=== PATIENT | female | born 1950 | race Caucasian/White ===

== ENCOUNTER 2019-05-04 11:00 | Outpatient (RCR) | payer SELFPAY | END 2019-06-03 00:01 | LOC: CR 11:00 | PROVIDERS: Referring Provider Internal Medicine Cardiovascular Disease; Visit Provider Internal Medicine Cardiovascular Disease | DX: I25.10 Atherosclerotic heart disease of native coronary artery without angina pectoris (principal) ==

== ENCOUNTER 2019-06-11 09:13 | Outpatient (RCR) | payer SELFPAY | END 2019-07-04 23:59 | disposition home or self-care (01) | LOC: CR 09:13 | PROVIDERS: Referring Provider Internal Medicine Cardiovascular Disease; Visit Provider Internal Medicine Cardiovascular Disease | DX: I25.10 Atherosclerotic heart disease of native coronary artery without angina pectoris (principal) ==

== ENCOUNTER 2019-07-07 11:27 | Outpatient (RCR) | payer SELFPAY | END 2019-08-02 23:59 | disposition home or self-care (01) | LOC: CR 11:27 | PROVIDERS: Referring Provider Internal Medicine Cardiovascular Disease; Visit Provider Internal Medicine Cardiovascular Disease | DX: I25.10 Atherosclerotic heart disease of native coronary artery without angina pectoris (principal) ==

== ENCOUNTER → 2019-11-10 09:25 | Outpatient (BNVA) | payer MEDICARE, OTHER, SELFPAY | PROVIDERS: PCP Physician Assistant; Visit Provider Specialist | DX: G20 Parkinson's disease (principal) | CPT/HCPCS: 99204 ==

== ENCOUNTER 2019-11-11 13:19 | Outpatient (RCR) | payer SELFPAY | END 2019-12-02 23:59 | disposition home or self-care (01) | LOC: CR 13:19 | PROVIDERS: PCP Physician Assistant; Referring Provider Internal Medicine Cardiovascular Disease; Visit Provider Internal Medicine Cardiovascular Disease | DX: I25.10 Atherosclerotic heart disease of native coronary artery without angina pectoris (principal) ==

== ENCOUNTER 2019-11-18 06:00 | Outpatient (RCR) | payer MEDICARE, OTHER, SELFPAY | END 2019-12-02 23:59 | disposition home or self-care (01) | LOC: SPT 06:00 | PROVIDERS: PCP Physician Assistant; Visit Provider Specialist | DX: G20 Parkinson's disease (principal) | CPT/HCPCS: 97110; 97112; 97162 ==

== ENCOUNTER 2019-12-03 06:00 | Outpatient (RCR) | payer MEDICARE, OTHER, SELFPAY | END 2019-12-19 23:00 | disposition home or self-care (01) | LOC: SPT 06:00 | PROVIDERS: PCP Physician Assistant; Visit Provider Specialist | DX: G20 Parkinson's disease (principal) | CPT/HCPCS: 97110; 97112 ==

== ENCOUNTER 2020-01-06 11:09 | Outpatient (RCR) | payer SELFPAY | END 2020-02-02 23:59 | disposition home or self-care (01) | LOC: CR 11:09 | PROVIDERS: PCP Physician Assistant; Referring Provider Internal Medicine Cardiovascular Disease; Visit Provider Internal Medicine Cardiovascular Disease | DX: I25.10 Atherosclerotic heart disease of native coronary artery without angina pectoris (principal) ==

== ENCOUNTER → 2020-01-28 08:05 | Outpatient (BNVA) | payer MEDICARE, OTHER, SELFPAY | PROVIDERS: PCP Physician Assistant; Visit Provider Specialist | DX: G20 Parkinson's disease (principal) | CPT/HCPCS: 99213 ==

== ENCOUNTER 2020-02-03 14:21 | Outpatient (RCR) | payer SELFPAY | END 2020-03-03 23:59 | disposition home or self-care (01) | LOC: CR 14:21 | PROVIDERS: PCP Physician Assistant; Referring Provider Internal Medicine Cardiovascular Disease; Visit Provider Internal Medicine Cardiovascular Disease | DX: I25.10 Atherosclerotic heart disease of native coronary artery without angina pectoris (principal) ==

== ENCOUNTER 2020-03-05 10:47 | Outpatient (RCR) | payer SELFPAY | END 2020-04-03 23:59 | disposition home or self-care (01) | LOC: CR 10:47 | PROVIDERS: PCP Physician Assistant; Referring Provider Internal Medicine Cardiovascular Disease; Visit Provider Internal Medicine Cardiovascular Disease | DX: Z95.1 Presence of aortocoronary bypass graft (principal) ==

== ENCOUNTER 2020-04-04 11:23 | Outpatient (RCR) | payer SELFPAY | END 2020-05-03 23:59 | disposition home or self-care (01) | LOC: CR 11:23 | PROVIDERS: PCP Physician Assistant; Referring Provider Internal Medicine Cardiovascular Disease; Visit Provider Internal Medicine Cardiovascular Disease | DX: Z95.1 Presence of aortocoronary bypass graft (principal) ==

== ENCOUNTER 2020-05-06 11:06 | Outpatient (RCR) | payer SELFPAY | END 2020-06-03 23:59 | disposition home or self-care (01) | LOC: CR 11:06 | PROVIDERS: PCP Physician Assistant; Referring Provider Internal Medicine Cardiovascular Disease; Visit Provider Internal Medicine Cardiovascular Disease | DX: Z95.1 Presence of aortocoronary bypass graft (principal) ==

== ENCOUNTER 2020-06-04 13:03 | Outpatient (RCR) | payer SELFPAY | END 2020-07-04 23:59 | disposition home or self-care (01) | LOC: CR 13:03 | PROVIDERS: PCP Physician Assistant; Referring Provider Internal Medicine Cardiovascular Disease; Visit Provider Internal Medicine Cardiovascular Disease | DX: Z95.1 Presence of aortocoronary bypass graft (principal) ==

== ENCOUNTER → 2020-06-29 09:50 | Outpatient (BNVA) | payer MEDICARE, OTHER, SELFPAY | PROVIDERS: PCP Physician Assistant; Visit Provider Specialist | DX: G20 Parkinson's disease (principal) | CPT/HCPCS: 99214 ==

== ENCOUNTER 2020-07-06 10:39 | Outpatient (RCR) | payer SELFPAY | END 2020-08-01 23:59 | disposition home or self-care (01) | LOC: CR 10:39 | PROVIDERS: PCP Physician Assistant; Referring Provider Internal Medicine Cardiovascular Disease; Visit Provider Internal Medicine Cardiovascular Disease | DX: Z95.1 Presence of aortocoronary bypass graft (principal) ==

== ENCOUNTER 2020-08-02 09:34 | Outpatient (RCR) | payer SELFPAY | END 2020-09-01 23:59 | disposition home or self-care (01) | LOC: CR 09:34 | PROVIDERS: PCP Physician Assistant; Referring Provider Internal Medicine Cardiovascular Disease; Visit Provider Internal Medicine Cardiovascular Disease | DX: Z95.1 Presence of aortocoronary bypass graft (principal) ==

== ENCOUNTER 2020-09-02 14:27 | Outpatient (RCR) | payer SELFPAY | END 2020-10-01 23:59 | disposition home or self-care (01) | LOC: CR 14:27 | PROVIDERS: PCP Physician Assistant; Referring Provider Internal Medicine Cardiovascular Disease; Visit Provider Internal Medicine Cardiovascular Disease | DX: Z95.1 Presence of aortocoronary bypass graft (principal) ==

== ENCOUNTER 2020-10-04 10:39 | Outpatient (RCR) | payer SELFPAY | END 2020-11-01 23:59 | disposition home or self-care (01) | LOC: CR 10:39 | PROVIDERS: PCP Physician Assistant; Referring Provider Internal Medicine Cardiovascular Disease; Visit Provider Internal Medicine Cardiovascular Disease | DX: Z95.1 Presence of aortocoronary bypass graft (principal) ==

== ENCOUNTER 2020-11-02 14:19 | Outpatient (RCR) | payer SELFPAY | END 2020-12-01 23:59 | disposition home or self-care (01) | LOC: CR 14:19 | PROVIDERS: PCP Physician Assistant; Referring Provider Internal Medicine Cardiovascular Disease; Visit Provider Internal Medicine Cardiovascular Disease | DX: Z95.1 Presence of aortocoronary bypass graft (principal) ==

== ENCOUNTER 2020-12-02 13:59 | Outpatient (RCR) | payer SELFPAY | END 2021-01-01 23:59 | disposition home or self-care (01) | LOC: CR 13:59 | PROVIDERS: PCP Physician Assistant; Referring Provider Internal Medicine Cardiovascular Disease; Visit Provider Internal Medicine Cardiovascular Disease | DX: Z95.1 Presence of aortocoronary bypass graft (principal) ==

== ENCOUNTER → 2020-12-29 08:55 | Outpatient (BNVA) | payer MEDICARE, OTHER, SELFPAY | PROVIDERS: PCP Physician Assistant; Visit Provider Specialist | DX: G20 Parkinson's disease (principal); R41.3 Other amnesia | CPT/HCPCS: 96116; 99213 ==

== ENCOUNTER 2021-01-03 14:33 | Outpatient (RCR) | payer SELFPAY | END 2021-02-01 23:59 | disposition home or self-care (01) | LOC: CR 14:33 | PROVIDERS: PCP Physician Assistant; Referring Provider Internal Medicine Cardiovascular Disease; Visit Provider Internal Medicine Cardiovascular Disease | DX: Z95.1 Presence of aortocoronary bypass graft (principal) ==

== ENCOUNTER 2021-02-03 10:50 | Outpatient (RCR) | payer SELFPAY | END 2021-03-03 23:59 | disposition home or self-care (01) | LOC: CR 10:50 | PROVIDERS: PCP Physician Assistant; Referring Provider Internal Medicine Cardiovascular Disease; Visit Provider Internal Medicine Cardiovascular Disease | DX: Z95.1 Presence of aortocoronary bypass graft (principal) ==

== ENCOUNTER 2021-02-09 14:45 | Inpatient (IN) | payer MEDICARE, OTHER, SELFPAY ==
[2021-02-09] VITALS (12 sets, daily range): BP systolic 104–140; BP diastolic 68–98; PULSE 52–133; RESP 16–25; TEMP 36.5–36.8; O2SAT 93–98; BMI 34.2
--- NOTE | 2021-02-09 15:03 | XR_ITS ---
WS: [id number] Portable AP upright chest, 02/09/2021 Clinical Data: chest pain Comparison: PA chest, 08/18/2017. Findings: No nodules, masses or effusions are seen. The heart is normal. The pulmonary vascularity is not increased. No pneumonia or pneumothorax is seen. A single lead pacemaker is in position with the generator overlying the left lower chest. There are midline sternotomy sutures. The aortic arch and descending thoracic aorta show calcification and tortuosity. The patient has had an anterior cervical disc fusion. XR/XR chest 1V portable [id number] Impression: Atherosclerosis.
--- NOTE | 2021-02-09 15:04 | ECG_ITS ---
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 Measurements Intervals [place] Rate: 106 P: [place]: QRS: 62 QRSD: 86 T: 108 QT: 414 QTc: 551 Interpretive Statements ATRIAL FLUTTER WITH RAPID VENTRICULAR RESPONSE POSSIBLE ANTERIOR MYOCARDIAL INFARCTION , PROBABLY OLD Compared to ECG 04/20/2017 16:26:31 ST (T wave) deviation now present Sinus rhythm no longer present Myocardial infarct finding still present Electronically Signed On 02-09-2021 17:01:19 CDT by Aileen Mcconnell M.D. [id number] f
--- NOTE | 2021-02-09 17:04 | ECG_ITS ---
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 Measurements Intervals [place] Rate: 127 P: 85 NE: 174 QRS: 9 QRSD: 105 T: 142 QT: 337 QTc: 492 Interpretive Statements Atrial flutter with RVR POSSIBLE ANTERIOR MYOCARDIAL INFARCTION , PROBABLY OLD PROBABLE INFERIOR MYOCARDIAL INFARCTION , OF INDETERMINATE AGE Compared to ECG 02/09/2021 15:26:08 Myocardial infarct finding still present Electronically Signed On 02-10-2021 9:28:34 CDT by Aileen Mcconnell M.D. [id number] f
[2021-02-09] MEDS: sodium chloride 0.9% 1,000 ML 999 ML IV (18:12)
[2021-02-09 18:16] LABS: Basophils # 0.1 10^3/uL (0.0-0.1); Basophils % 0.7 %; Eosinophils # 0.3 10^3/uL (0.0-0.8); Hematocrit 41.3 % (37.0-47.0); Hemoglobin 13.2 g/dL (11.5-15.3); Lymphocytes # 3.1 10^3/uL (0.8-4.8); Lymphocytes % 25.6 %; Mean Corpuscular Hemoglobin 28.5 pg (28.0-34.0); Mean Corpuscular Volume 89.2 fl (81-99); Mean Platelet Volume 9.7 fL (7.4-10.4); Monocytes # 0.8 10^3/uL (0.2-0.9); Monocytes % 6.6 %; Neutrophils # 7.93 10^3/uL (1.8-7.7); Neutrophils % 64.6 %; Nucleated Red Blood Cells % 0 %; Platelet Count 263 10^3/cmm (130-400); Red Blood Count 4.63 10^6/uL (4.1-5.3); White Blood Count 12.3 10^3/uL (4.0-10.0)
[2021-02-09 18:37] LABS: D Dimer 1.61 ug/mIFEU (0-0.59)
[2021-02-09 18:46] LABS: SARS Covid-2 Antigen Negative (Negative)
--- NOTE | 2021-02-09 18:48 | CTR_ITS ---
PROCEDURE INFORMATION: Exam: CTA Chest With Contrast Exam date and time: 02/09/2021 6:48 PM Age: 70 years old Clinical indication: Shortness of breath; Prior surgery; Surgery type: Open heart/pacemaker; Patient HX: Chest pain/sob TECHNIQUE: Imaging protocol: Computed tomographic angiography of the chest with contrast. 3D rendering (Not supervised by radiologist): MIP and/or 3D reconstructed images were created by the technologist. Radiation optimization: All CT scans at this facility use at least one of these dose optimization techniques: automated exposure control; mA and/or kV adjustment per patient size (includes targeted exams where dose is matched to clinical indication); or iterative reconstruction. Contrast material: [id number]; Contrast volume: 65 ml; Contrast route: INTRAVENOUS (IV); COMPARISON: CR XR chest 1V portable [id number] 02/09/2021 3:40 PM RADIATION DOSE METRICS: Total DLP (mGy-cm): 529.23 FINDINGS: Tubes, catheters and devices: Left-sided pacemaker with leads in the heart. Pulmonary arteries: Normal. No pulmonary emboli. Aorta: Unremarkable. No aortic aneurysm. No aortic dissection. Lungs: 4 mm left upper lobe nodule, image 111. Minimal dependent atelectasis in the lower lobes and lingula. Pleural spaces: Unremarkable. No pneumothorax. No pleural effusion. Heart: Coronary artery calcifications. The heart size is normal. Mitral annulus calcifications. Lymph nodes: Unremarkable. No enlarged lymph nodes. Liver: Multiple subcentimeter hypodensities in the liver appear to be of fat density but are too small to accurately characterize. Bones/joints: C-spine fusion hardware. No fracture identified. Median sternotomy changes. Soft tissues: Unremarkable. CT/CT angio chest PE protcl [id number] IMPRESSION: 1. No evidence for pulmonary embolus or other acute finding. 2. 4 mm left pulmonary nodule. For patients at low risk (minimal or absent history of smoking and of other known risk factors), no routine follow-up is indicated. For patients at high risk (history of smoking or of other known risk factors), consider optional CT Chest at 12 months. (Reference: Annabella) 3. Multiple tiny fat density lesions in the liver most likely represent lipomas or angiomyolipomas. References: Annabella Dotson, et al. Guidelines for Management of Incidental Pulmonary Nodules Detected on CT Images: From the Fleischner Society 2017. Radiology. 2017;284(1):228-243. Radiation Dose CTDIVOL = (mGy): DLP = 529.23 (mGy-cm)
[2021-02-09 18:49] LABS: Troponin(5th) Baseline 76 ng/L (0-10)
[2021-02-09 18:55] LABS: Alanine Aminotransferase 8 U/L (0-33); Albumin Level 4.5 g/dL (3.5-5.2); Alkaline Phosphatase 143 IU/L (35-105); Anion Gap 20.6 (5-19); Aspartate Amino Transferase 35 U/L (0-32); Blood Urea Nitrogen 34 mg/dL (8-23); Calcium 9.4 mg/dL (8.5-10.5); Carbon Dioxide 23 mmol/L (22-29); Chloride 99 mmol/L (98-107); Glucose 61 mg/dL (65-115); Osmolality Calculated 294 mOsm/kg (285-295); Potassium 3.6 mmol/L (3.5-5.1); Sodium 139 mmol/L (136-145); Total Bilirubin 0.3 mg/dL (0.15-1.2); Total Protein 7.5 g/dL (6.6-8.7)
--- NOTE | 2021-02-09 19:33 | ED_ITS ---
HPI - Arrhythmia/Palpitations General: Chief Complaint: Arrhythmia/Palpitations Stated Complaint: Chest pain Time Seen by Provider: 02/09/21 17:49 Source: patient Mode of arrival: ambulatory Limitations: no limitations History of Present Illness: HPI narrative: 70-year-old female who has a history of intermittent palpitations along with heart history and Parkinson's. She states that she goes to the heart clinic but states that over the last 2 days she been having increasing palpitations. States her heart rates been well in the 130s. She has no history of A. fib. She states she had some slight chest pain. Some slight shortness of breath denies any cough. Denies any worsening proving factors. Associated symptoms: Deny nausea or vomiting Review of Systems Const: Denies: fever(s), chills, body aches or change in appetite Eyes: Denies: blurry vision or eye discomfort ENMT: Denies: throat pain or dental pain Card: Reports: chest pain and palpitations Resp: Denies: dyspnea GI: Denies: abdominal pain, nausea, vomiting or diarrhea : Denies: dysuria Musc: Denies: neck pain or back pain Skin/Breast: Denies: rash Neuro: Denies: headache(s) Psych: Denies: depression Ahsan/Lymph: Denies: easy bruising All/Imm: Denies: urticaria PFSH ED PFSH: Family History Other CAD (coronary artery disease) Diabetes Hypertension Stroke Denies family history of Cancer Social History Alcohol intake: never History of recent travel: Yes ([facility] ) Physical Exam Const: COMMON NORMALS: no acute distress, patient oriented x3 and healthy appearing HENMT: COMMON NORMALS: normocephalic and atraumatic HEAD & SCALP: normocephalic and atraumatic Eye: COMMON NORMALS: Equal, round and reactive pupils present and EOMs intact bilaterally PUPIL: Yes Equal, round and reactive pupils present Neck/C-Spine: COMMON NORMALS: full ROM and supple Chest: COMMONS NORMALS: normal inspection of the chest and normal palpation of entire chest wall Resp: COMMON NORMALS: normal respiratory effort, No retractions, No use of accessory muscles and clear to auscultation bilaterally AUSCULTATION: clear to auscultation bilaterally Cardio: COMMON NORMALS: regular rhythm and No murmurs present (Cardio) RATE: tachycardic RHYTHM: regular rhythm GI: COMMON NORMALS: Normal to inspection, nondistended, normoactive bowel sounds present, Soft to palpation, non-tender and no masses PALPATION: Yes Soft to palpation Extremity: COMMON NORMALS: normal to inspection and full ROM Neuro: COMMON NORMALS: patient oriented x3, moves all extremities and no focal motor deficits Psych: COMMON NORMALS: mental status grossly normal, Normal thought process present and cooperative THOUGHT PROCESS: Normal thought process present Skin: COMMON NORMALS: no rashes or lesions noted and no wounds GENERAL SKIN EXAM: no rashes or lesions noted Course Vital Signs: Vital signs: Vital Signs Temperature 98.2 F 02/09/21 15:22 Pulse Rate 111 H 02/09/21 21:47 Respiratory Rate 20 H 02/09/21 21:47 Blood Pressure 110/74 02/09/21 21:47 Pulse Oximetry 95 02/09/21 21:47 MDM - Arrhythmia/Palpitations MDM Narrative: Medical decision making narrative: Patient presents with atrial flutter. I gave her multiple doses of Cardizem and put on Cardizem drip and she has not converted. Patient CT is normal and troponins are normal. I spoke to the hospitalist and will admit on a Cardizem drip. Lab Data: Labs: Lab Results 02/09/21 02/09/21 02/09/21 Range/Units 18:00 18:00 18:00 WBC 12.3 H (4.0-10.0) 10^3/ uL RBC 4.63 (4.1-5.3) 10^6/u L Hgb 13.2 (11.5-15.3) g/dL Hct 41.3 (37.0-47.0) % MCV 89.2 (81-99) fl MCH 28.5 (28.0-34.0) pg MCHC 32.0 (30.0-36.0) g/dL RDW 16.0 H (12.1-15.1) % Plt Count 263 (130-400) 10^3/c mm MPV 9.7 (7.4-10.4) fL Neut % (Auto) 64.6 % Lymph % (Auto) 25.6 % Sevier % (Auto) 6.6 % Eos % (Auto) 2.0 % Baso % (Auto) 0.7 % Neut # (Auto) 7.93 H (1.8-7.7) 10^3/u L Lymph # (Auto) 3.1 (0.8-4.8) 10^3/u L Sevier # (Auto) 0.8 (0.2-0.9) 10^3/u L Eos # (Auto) 0.3 (0.0-0.8) 10^3/u L Baso # (Auto) 0.1 (0.0-0.1) 10^3/u L Nucleated RBC % (a uto) 0 % Nucleated RBCs # 0.0 /100WBC D-Dimer (0-0.59) ug/mIFE U Sodium 139 (136-145) mmol/L Potassium 3.6 (3.5-5.1) mmol/L Chloride 99 (98-107) mmol/L Carbon Dioxide 23 (22-29) mmol/L Anion Gap 20.6 H (5-19) BUN 34 H (8-23) mg/dL Creatinine 1.2 H (0.5-0.9) mg/dL GFR Calculation Not Reportable Glucose 61 L (65-115) mg/dL Calculated Osmolal ity 294 (285-295) mOsm/k g Calcium 9.4 (8.5-10.5) mg/dL Total Bilirubin 0.3 (0.15-1.2) mg/dL AST 35 H (0-32) U/L ALT 8 (0-33) U/L Alkaline Phosphata se 143 H (35-105) IU/L Troponin T Baselin e 76 H (0-10) ng/L Troponin T 120 Min [place] (0-10) ng/L Delta Troponin T (0-10) ABS# NT-Pro-B Natriuret Pep 9414 H (0-125) pg/mL Total Protein 7.5 (6.6-8.7) g/dL Albumin 4.5 (3.5-5.2) g/dL Globulin 3.0 (1.3-4.6) g/dL SARS-CoV-2 Ag (Rap id) (Negative) 09/01/2202/09/21 02/09/21 Range/Units 18:00 18:00 18:18 WBC (4.0-10.0) 10^3/ uL RBC (4.1-5.3) 10^6/u L Hgb (11.5-15.3) g/dL Hct (37.0-47.0) % MCV (81-99) fl MCH (28.0-34.0) pg MCHC (30.0-36.0) g/dL RDW (12.1-15.1) % Plt Count (130-400) 10^3/c mm MPV (7.4-10.4) fL Neut % (Auto) % Lymph % (Auto) % [place]vier % (Auto) % Eos % (Auto) % Baso % (Auto) % Neut # (Auto) (1.8-7.7) 10^3/u L Lymph # (Auto) (0.8-4.8) 10^3/u L [place]vier # (Auto) (0.2-0.9) 10^3/u L Eos # (Auto) (0.0-0.8) 10^3/u L Baso # (Auto) (0.0-0.1) 10^3/u L Nucleated RBC % (a uto) % Nucleated RBCs # /100WBC D-Dimer 1.61 H (0-0.59) ug/mIFE U Sodium (136-145) mmol/L Potassium (3.5-5.1) mmol/L Chloride (98-107) mmol/L Carbon Dioxide (22-29) mmol/L Anion Gap (5-19) BUN (8-23) mg/dL Creatinine (0.5-0.9) mg/dL GFR Calculation Glucose (65-115) mg/dL Calculated Osmolal ity (285-295) mOsm/k g Calcium (8.5-10.5) mg/dL Total Bilirubin (0.15-1.2) mg/dL AST (0-32) U/L ALT (0-33) U/L Alkaline Phosphata se (35-105) IU/L Troponin T Baselin e (0-10) ng/L Troponin T 120 Min [place] (0-10) ng/L Delta Troponin T (0-10) ABS# NT-Pro-B Natriuret Pep Cancelled (0-125) pg/mL Total Protein (6.6-8.7) g/dL Albumin (3.5-5.2) g/dL Globulin (1.3-4.6) g/dL SARS-CoV-2 Ag (Rap id) Negative (Negative) 02/09/21 Range/Units 20:27 WBC (4.0-10.0) 10^3/ uL RBC (4.1-5.3) 10^6/u L Hgb (11.5-15.3) g/dL Hct (37.0-47.0) % MCV (81-99) fl MCH (28.0-34.0) pg MCHC (30.0-36.0) g/dL RDW (12.1-15.1) % Plt Count (130-400) 10^3/c mm MPV (7.4-10.4) fL Neut % (Auto) % Lymph % (Auto) % [place] % (Auto) % Eos % (Auto) % Baso % (Auto) % Neut # (Auto) (1.8-7.7) 10^3/u L Lymph # (Auto) (0.8-4.8) 10^3/u L [place] # (Auto) (0.2-0.9) 10^3/u L Eos # (Auto) (0.0-0.8) 10^3/u L Baso # (Auto) (0.0-0.1) 10^3/u L Nucleated RBC % (a uto) % Nucleated RBCs # /100WBC D-Dimer (0-0.59) ug/mIFE U Sodium (136-145) mmol/L Potassium (3.5-5.1) mmol/L Chloride (98-107) mmol/L Carbon Dioxide (22-29) mmol/L Anion Gap (5-19) BUN (8-23) mg/dL Creatinine (0.5-0.9) mg/dL GFR Calculation Glucose (65-115) mg/dL Calculated Osmolal ity (285-295) mOsm/k g Calcium (8.5-10.5) mg/dL Total Bilirubin (0.15-1.2) mg/dL AST (0-32) U/L ALT (0-33) U/L Alkaline Phosphata se (35-105) IU/L Troponin T Baselin e (0-10) ng/L Troponin T 120 Min [place] 61.34 H (0-10) ng/L Delta Troponin T -14.66 L (0-10) ABS# NT-Pro-B Natriuret Pep (0-125) pg/mL Total Protein (6.6-8.7) g/dL Albumin (3.5-5.2) g/dL Globulin (1.3-4.6) g/dL SARS-CoV-2 Ag (Rap id) (Negative) Imaging Data^: CT Chest: Attestation: I personally reviewed and interpreted this imaging study as follows: Radiologist's impression: [employer] [address] [address] Scan Report Signed Patient: Margaret Cano Unit #: [id number] : 1950 Age/Sex: 70 / F ADM Date: 02/09/21 Loc: ER Room/Bed: Attending Dr: Ordering Provider/Ordering MD: Franco Stovall MD Date of Service: 02/09/21 Procedure(s): CT angio chest PE prot [id number] Accession Number(s): [id number] Report Number: [id number] PROCEDURE INFORMATION: Exam: CTA Chest With Contrast Exam date and time: 02/09/2021 6:48 PM Age: 70 years old Clinical indication: Shortness of breath; Prior surgery; Surgery type: Open heart/pacemaker; Patient HX: Chest pain/sob TECHNIQUE: Imaging protocol: Computed tomographic angiography of the chest with contrast. 3D rendering (Not supervised by radiologist): MIP and/or 3D reconstructed images were created by the technologist. Radiation optimization: All CT scans at this facility use at least one of these dose optimization techniques: automated exposure control; mA and/or kV adjustment per patient size (includes targeted exams where dose is matched to clinical indication); or iterative reconstruction. Contrast material: [id number]; Contrast volume: 65 ml; Contrast route: INTRAVENOUS (IV); COMPARISON: CR XR chest 1V portable [id number] 02/09/2021 3:40 PM RADIATION DOSE METRICS: Total DLP (mGy-cm): 529.23 FINDINGS: Tubes, catheters and devices: Left-sided pacemaker with leads in the heart. Pulmonary arteries: Normal. No pulmonary emboli. Aorta: Unremarkable. No aortic aneurysm. No aortic dissection. Lungs: 4 mm left upper lobe nodule, image 111. Minimal dependent atelectasis in the lower lobes and lingula. Pleural spaces: Unremarkable. No pneumothorax. No pleural effusion. Heart: Coronary artery calcifications. The heart size is normal. Mitral annulus calcifications. Lymph nodes: Unremarkable. No enlarged lymph nodes. Liver: Multiple subcentimeter hypodensities in the liver appear to be of fat density but are too small to accurately characterize. Bones/joints: C-spine fusion hardware. No fracture identified. Median sternotomy changes. Soft tissues: Unremarkable. CT/CT angio chest PE protcl [id number] IMPRESSION: 1. No evidence for pulmonary embolus or other acute finding. 2. 4 mm left pulmonary nodule. For patients at low risk (minimal or absent history of smoking and of other known risk factors), no routine follow-up is indicated. For patients at high risk (history of smoking or of other known risk factors), consider optional CT Chest at 12 months. (Reference: Annabella) 3. Multiple tiny fat density lesions in the liver most likely represent lipomas or angiomyolipomas. References: Annabella Dotson, et al. Guidelines for Management of Incidental Pulmonary Nodules Detected on CT Images: From the Fleischner Society 2017. Radiology. 2017;284(1):228-243. Radiation Dose CTDIVOL = (mGy): DLP = 529.23 (mGy-cm) Dictated By: Tad Ovalle Signed By: Tad Ovalle Signed Date/Time: 02/09/212004 DD/ 03 EKG Data^: EKG 1: Attestation: I personally reviewed and interpreted this EKG as follows: EKG interpretation date: 02/09/21 EKG interpretation time: 17:56 Interpretation: sinus tach hr [address] or t wave abnormalities qrs 105 qtc 412 Other EKG comments: Chest X-Ray 02/09/21 15:03 Impression: Atherosclerosis. Chest CTA 02/09/21 18:48 IMPRESSION: 1. No evidence for pulmonary embolus or other acute finding. 2. 4 mm left pulmonary nodule. For patients at low risk (minimal or absent history of smoking and of other known risk factors), no routine follow-up is indicated. For patients at high risk (history of smoking or of other known risk factors), consider optional CT Chest at 12 months. (Reference: Annabella) 3. Multiple tiny fat density lesions in the liver most likely represent lipomas or angiomyolipomas. References: Annabella Dotson, et al. Guidelines for Management of Incidental Pulmonary Nodules Detected on CT Images: From the Fleischner Society 2017. Radiology. 2017;284(1):228-243. Radiation Dose CTDIVOL = (mGy): DLP = 529.23 (mGy-cm) EKG 2: Attestation: I personally reviewed and interpreted this EKG as follows: EKG interpretation date: 02/09/21 EKG interpretation time: 19:43 Interpretation: atrial flutter hr [address] or t wave abnormalities qrs 113 qtc 409 Other EKG comments: Chest X-Ray 02/09/21 15:03 Impression: Atherosclerosis. Chest CTA 02/09/21 18:48 IMPRESSION: 1. No evidence for pulmonary embolus or other acute finding. 2. 4 mm left pulmonary nodule. For patients at low risk (minimal or absent history of smoking and of other known risk factors), no routine follow-up is indicated. For patients at high risk (history of smoking or of other known risk factors), consider optional CT Chest at 12 months. (Reference: Annabella) 3. Multiple tiny fat density lesions in the liver most likely represent lipomas or angiomyolipomas. References: Albertoholebron Dotson et al. Guidelines for Management of Incidental Pulmonary Nodules Detected on CT Images: From the Fleischner Society 2017. Radiology. 2017;284(1):228-243. Radiation Dose CTDIVOL = (mGy): DLP = 529.23 (mGy-cm) EKG 3: Attestation: I personally reviewed and interpreted this EKG as follows: EKG interpretation date: 02/09/21 EKG interpretation time: 20:54 Interpretation: aftrial flutter hr [address] or t wave abnormalities qrs 102 qtc 408 Other EKG comments: Chest X-Ray 02/09/21 15:03 Impression: Atherosclerosis. Chest CTA 02/09/21 18:48 IMPRESSION: 1. No evidence for pulmonary embolus or other acute finding. 2. 4 mm left pulmonary nodule. For patients at low risk (minimal or absent history of smoking and of other known risk factors), no routine follow-up is indicated. For patients at high risk (history of smoking or of other known risk factors), consider optional CT Chest at 12 months. (Reference: Annabella) 3. Multiple tiny fat density lesions in the liver most likely represent lipomas or angiomyolipomas. References: Annabella Dotson, et al. Guidelines for Management of Incidental Pulmonary Nodules Detected on CT Images: From the Fleischner Society 2017. Radiology. 2017;284(1):228-243. Radiation Dose CTDIVOL = (mGy): DLP = 529.23 (mGy-cm) Discharge Plan Discharge Patient Disposition: Admitted As Inpatient Admit Provider: Geneva Warren Clinical Impression: Atrial flutter Qualifiers: Atrial flutter type: unspecified Qualified Code(s): I48.92 - Unspecified atrial flutter Condition: Stable Coding Level of Care Code ED Refrigerator Glazier for Chg Fwd Exam Comprehensive
[2021-02-09] MEDS: sodium chloride 0.9% 500 ML 999 ML IV (19:55)
[2021-02-09] MEDS: iodixanol 320 mg/mL 100mL Btl IV (20:42)
[2021-02-09 20:47] LABS: NT Pro B Type Natriuretic Pept 9414 pg/mL (0-125)
--- NOTE | 2021-02-09 21:04 | ECG_ITS ---
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 Measurements Intervals [place] Rate: 130 P: [place]: QRS: 41 QRSD: 113 T: 100 QT: 332 QTc: 490 Interpretive Statements ATRIAL FLUTTER WITH RAPID VENTRICULAR RESPONSE MODERATE INTRAVENTRICULAR CONDUCTION DELAY [110+ ms QRS DURATION] ST DEVIATION AND MODERATE T-WAVE ABNORMALITY, CONSIDER INFERIOR ISCHEMIA [-0.1+ mV T-WAVE IN II/aVF] Compared to ECG 02/09/2021 17:56:29 Intraventricular conduction delay now present T-wave abnormality now present Possible ischemia now present Sinus tachycardia no longer present Myocardial infarct finding no longer present Electronically Signed On 02-10-2021 20:10:43 CDT by Humberto Marcial M.D. [id number]
[2021-02-09 21:27] LABS: Troponin 5 2HR 61.34 ng/L (0-10)
--- NOTE | 2021-02-09 23:08 | PC.NURSE ---
Dr. Warren notified of heart rate ranging 90s to 130s with Cardizem at 15.
[2021-02-09] MEDS: metoprolol tartrate 1 mg/1 mL SDV 5 mL 5 MG IVP (23:30)
[2021-02-10] VITALS (22 sets, daily range): BP systolic 81–135; BP diastolic 45–85; PULSE 58–146; RESP 14–26; TEMP 36.6–36.7; O2SAT 89–99
[2021-02-10 00:06] LABS: Troponin 5 6HR 61.29 ng/L (0-10)
--- NOTE | 2021-02-10 04:06 | PM.HP ---
Providers/Chief Complaint Admitting Physician: Geneva Warren MD Primary Care Provider: Chanel Moseley Chief Complaint: Chest pain History of Present Illness Margaret Cano is a 70 year old female with Parkinson's disease, CAD, DM, HTN, intermittent A fib, presenting with2 days of palpitations. HR sustained in 140s upon presentation, did not resolve with pushes of cardizem, started on cardizem gtt. Since transfer to [facility] also received metoprolol 5mg iv once after which HR now at 52. 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 States since changing the Lasix she has been having the symptoms and finding mild out of breath on exertion. Denies any nausea vomiting, headache, chest pain, orthopnea, loss of consciousness, fall, fever, known exposure to COVID-19. Troponin baseline 76, negative 2 and 6 hr deltas. D dimer elevated however CTA negative for PE or other acute finding. Denies chest pain. Review of Systems General: Reports: 10 or more systems reviewed and unremarkable except in HPI and below Const: Denies: fever(s), chills or body aches Eyes: Denies: change in vision, blurry vision or photophobia ENMT: Reports: hoarseness; Denies: throat pain, enlarged tonsils, odynophagia or nasal congestion Card: Denies: chest pain, palpitations, irregular heart rhythm, edema, swelling of feet/ankles, lightheadedness, pre-syncope, dyspnea on exertion or orthopnea Resp: Denies: dyspnea, productive cough, non-productive cough, wheezing, stridor, pain on inspiration, change in phlegm color, hemoptysis or chest congestion GI: Denies: abdominal pain, nausea, vomiting, hematemesis, coffee ground emesis, dysphagia, heartburn, diarrhea, constipation, GI cramping, change in stool character, hematochezia or melena : Denies: flank pain, difficulty voiding, dysuria, urinary frequency, urinary urgency, urinary hesitancy or hematuria Musc: Denies: neck pain, back pain, extremity pain, joint swelling, joint warmth or deformity Neuro: Denies: headache(s), numbness in extremities, weakness in extremities, sensory changes, difficulty walking, frequent falls, dizziness, vertigo, behavioral changes, Slurred speech present or seizure-like activity Psych: Denies: anxiety, depression, suicidal ideation or homicidal ideation Endo: Denies: polyuria, polydipsia, tired all the time, cold intolerance or hot flashes Ahsan/Lymph: Denies: easy bruising or easy bleeding Medications/Allergies Home Medications Medication Instructions Recorded Confirmed Last Taken Type clopidogrel 75 mg tablet 75 mg PO DAILY 11/10/19 02/09/21 02/08/21 History insulin detemir U-100 100 unit/mL 20 unit SUBCUT .COMPLEX ml 11/10/19 02/09/21 02/09/21 History (3 mL) subcutaneous pen liraglutide 0.6 mg/0.1 mL (18 mg/3 1.8 mg SUBCUT DAILY 11/10/19 02/09/21 02/09/21 History mL) subcutaneous pen injector mirabegron 25 mg tablet,extended 25 mg PO DAILY 11/10/19 02/09/21 02/09/21 History release 24 hr nitroglycerin 0.4 mg sublingual 0.4 mg SUBLINGUAL Q5M PRN 11/10/19 02/09/21 Unknown History tablet cholecalciferol (vitamin D3) 25 25 mcg PO DAILY 06/29/20 02/09/21 02/08/21 History mcg (1,000 unit) capsule furosemide 40 mg tablet See Rx Instructions .ROUTE 06/29/20 02/09/21 02/09/21 History .COMPLEX tab metoprolol succinate 25 mg 50 mg PO DAILY tab 06/29/20 02/09/21 02/09/21 History tablet,extended release 24 hr carbidopa 25 mg-levodopa 100 mg 1 tab PO QID #120 tab 12/29/20 02/09/21 02/08/21 Rx tablet gabapentin 100 mg capsule 100 mg PO BID 12/29/20 02/09/21 02/08/21 History galantamine 16 mg 24 hr 16 mg PO QAM #30 cap 12/29/20 02/09/21 Unknown Rx capsule,extended release galantamine 24 mg 24 hr 24 mg PO QAM #30 cap 12/29/20 02/09/21 Unknown Rx capsule,extended release aspirin [Aspir-81] 81 mg PO DAILY 02/09/21 02/09/21 02/08/21 History galantamine 8 mg PO DAILY 02/09/21 02/09/2102/08/21 History Allergies Allergy/AdvReac Type Severity Reaction Status Date / Time codeine Allergy unknown Verified 01/11/21 10:14 Penicillins Allergy unknown Verified 01/11/21 10:14 sulfamethoxazole Allergy unknown Verified 01/11/21 10:14 [From Bactrim] trimethoprim [From Bactrim] Allergy unknown Verified 01/11/21 10:14 PFSH Acute PFSH: Medical History (Updated 02/10/21 @ 15:53 by Rishabh Josue MD) CAD (coronary artery disease) Diabetes Hypercholesteremia Surgical History (Updated 02/10/21 @ 04:11 by Geneva Warren MD) H/O neck surgery History of heart artery stent S/P triple vessel bypass Family History Other CAD (coronary artery disease) Diabetes Hypertension Stroke Denies family history of Cancer Social History Alcohol intake: never History of recent travel: Yes ([facility] ) Vitals/I&O/Wt Last Vital Signs Temp 98 F 02/10/21 03:10 Pulse 84 02/10/21 03:10 Resp 25 H 02/10/21 03:10 BP 135/67 02/10/21 03:10 Pulse Ox 99 02/10/21 03:10 02/09/21 02/09/21 02/10/21 14:59 22:59 06:59 Intake Total 1506.833 / 1506.833 222.000 / 1728.833 Balance 1506.833 / 1506.833 222.000 / 1728.833 Weight last 48 hrs Weight 84.867 kg Physical Exam Narrative: EXAM NARRATIVE: General: No acute distress, AO x3 HEENT: PERRLA, pupils bilaterally equal and reactive, pallors not present Chest: Normal vesicular breath sounds, no added sounds, equal good air entry bilaterally CVS: S1-S2 regular, no murmurs, no tachycardia, no gallops, no rubs Abdomen: Soft, nontender, no organomegaly, bowel sounds present Neuro: No focal deficits, no facial deformity, AO x3, power 5/5 in all limbs Data : 02/10/21 13:40 02/10/21 13:40 A&P Assessment and plan (1) Atrial flutter: Status: Acute Qualifiers: Atrial flutter type: unspecified Qualified Code(s): I48.92 - Unspecified atrial flutter (2) Diabetes: Status: Acute (3) CAD (coronary artery disease): Status: Acute Additional A&P Information Atrial flutter with fibrillation: Rapid ventricular response. Increase home Metoprolol to 75 mg twice daily. If patient gets tachycardia again. Will start patient on Cardizem drip and transition over to oral Cardizem. Not on anticoagulation currently. Type 2 diabetes mellitus: Hold OHA. Insulin sliding scale at moderate dose protocol. CAD: No active chest pain. Check echocardiogram. Switch from oral Lasix to IV 40 mg daily. NURIS: Do not have baseline creatinine. Strict input output charting. Medical reconciliation done for nephrotoxic drugs. Full code. Carb consistent cardiac diet. Lovenox for DVT prophylaxis. Famotidine for daily prophylaxis Attestations Medical Necessity Statement*: Admission for more than 2 midnights for atrial flutter with fibrillation, kidney dysfunction Time Spent in Patient Care: Greater than 35 minutes (>than 50% of time spent in counselling and/or direct pt care on unit). Coding Level of Care Code Acute Pattern Scratcher for Hien Pete Diagnoses Atrial flutter I48.92 Atrial flutter type: unspecified Diabetes E11.9 CAD (coronary artery disease) I25.10
[2021-02-10] MEDS: metoprolol succinate ER (24 HR) 25 mg Tablet 50 MG PO ×2 (04:35→08:24)
[2021-02-10] MEDS: enoxaparin 40 mg/0.4 mL Syringe SUBCUT (04:35)
[2021-02-10 06:15] LABS: Thyroid Stimulating Hormone 0.55 uIU/mL (0.27-4.20)
[2021-02-10 06:38] LABS: Glucose Point of Care 124 mg/dL (70-110)
[2021-02-10] MEDS: aspirin 81 mg EC Tablet PO (08:24)
[2021-02-10] MEDS: clopidogrel 75 mg Tablet PO (08:25)
[2021-02-10] MEDS: carbidopa-levodopa 25-100mg Tablet 1 EACH PO ×4 (08:25→20:54)
[2021-02-10] MEDS: FUROsemide 40 mg Tablet PO (08:25)
[2021-02-10] MEDS: gabapentin 100 mg Capsule PO ×2 (08:25→18:00)
[2021-02-10] MEDS: metoprolol tartrate 1 mg/1 mL SDV 5 mL 5 MG IVP (10:36)
--- NOTE | 2021-02-10 10:57 | PC.CHAP ---
Pastoral Care Encounter/Spiritual Assessment Type of Contact [] Declined rn wound care visit [] Patient/Family/Request visit [] Outpatient visit [] Follow-up visit [] Physician referral [] Code/Alert [x] Routine visit [] Staff referral [] Actively dying [] Patient sleeping [] Family support [] [] Out of room [] Palliative care [] [x] Receiving care in room [] Pre-surgical visit [] Trauma [x] Long length of stay [] ICU visit [] Other: Relational/Emotional Strength [x] Patient feels connected with others/family/visitors/staff [] Distress [] Loneliness/isolation [] Abandonment Spirituality of Patient [x] Person of Mary Jo [] Attends Episcopal of their [place] [x] Believes in Prayer [] Reads Bible or Samaritan materials [] There are Spiritual issues to be addressed 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 Interventions [x] Prayer [x] Active listening [x] Non-anxious presence [x] Spiritual/emotional support [] Crisis/trauma care [x] Spiritual counseling [] Bereavement support [] Provided bereavement packet [] Provided Bible/devotional materials [] Provided toy/stuffed animal, coloring book to patient or family member [] Provided Communion [] Anointing/[place] [] Salvation [x] Completed spiritual assessment [] Other: Impact on Illness or Injury [] Angry [] Fearful [x] Anxious [] Often cries [] Exhaustion [x] Unable to work [] Unable to attend rastafari [] Unable to walk/stand [] Unable to read [] Unable to drive [] Unable to eat/drink [] Unable to sleep [] Unable to be with family [] Patient intubated [] Other: Summary erigtor heart beat doctor changing meds she nis going home soon has good attitude + 1 Time spent with patient 10 mins
[2021-02-10 11:14] LABS: Glucose Point of Care 228 mg/dL (70-110)
[2021-02-10] MEDS: metoprolol tartrate 25 mg Tablet PO (11:47)
[2021-02-10] MEDS: FUROsemide 10 mg/mL SDV 2mL 20 MG IVP (12:30)
[2021-02-10 14:17] LABS: Basophils # 0.1 10^3/uL (0.0-0.1); Basophils % 0.7 %; Eosinophils # 0.1 10^3/uL (0.0-0.8); Eosinophils % 1.1 %; Lymphocytes # 1.9 10^3/uL (0.8-4.8); Lymphocytes % 19.2 %; Mean Corpuscular HGB Conc 31.6 g/dL (30.0-36.0); Mean Corpuscular Hemoglobin 28.2 pg (28.0-34.0); Mean Corpuscular Volume 89.4 fl (81-99); Mean Platelet Volume 10.4 fL (7.4-10.4); Monocytes # 0.5 10^3/uL (0.2-0.9); Monocytes % 5.4 %; Neutrophils # 7.14 10^3/uL (1.8-7.7); Neutrophils % 73.2 %; Nucleated Red Blood Cells % 0 %; Platelet Count 222 10^3/cmm (130-400); Red Blood Count 4.25 10^6/uL (4.1-5.3); Red Cell Distribution Width 16.2 % (12.1-15.1); White Blood Count 9.8 10^3/uL (4.0-10.0)
[2021-02-10 14:44] LABS: Alanine Aminotransferase 7 U/L (0-33); Albumin Level 3.8 g/dL (3.5-5.2); Alkaline Phosphatase 120 IU/L (35-105); Anion Gap 20.1 (5-19); Aspartate Amino Transferase 32 U/L (0-32); Blood Urea Nitrogen 34 mg/dL (8-23); Calcium 8.6 mg/dL (8.5-10.5); Carbon Dioxide 19 mmol/L (22-29); Chloride 102 mmol/L (98-107); Globulin 2.8 g/dL (1.3-4.6); Glucose 194 mg/dL (65-115); Iron 50 ug/dL (37-145); NT Pro B Type Natriuretic Pept 8389 pg/mL (0-125); Osmolality Calculated 297 mOsm/kg (285-295); Percent Saturation 17.1 % (20-50); Potassium 4.1 mmol/L (3.5-5.1); Sodium 137 mmol/L (136-145); Total Bilirubin 0.3 mg/dL (0.15-1.2); Total Iron Binding Capacity 291 mcg/dl; Total Protein 6.6 g/dL (6.6-8.7); Unsaturated Iron Binding 241 ug/dL (112-347)
--- NOTE | 2021-02-10 15:50 | P.PN_ITS ---
Subjective Subjective: Interval history: Admitted overnight. Overnight patient's heart rate did drop into 50s of Cardizem drip was stopped. Today morning on examination heart rate in 120s on sitting up in bed while in the 80s on sleeping. Patient was given extra dose of metoprolol oral and IV heart rate remained of more than 110. Was given IV Cardizem for persistent tachycardia in afternoon after which heart rate settled down low 80s. Denies any nausea, vomiting, headache. States recently her dose of Lasix was changed after which she has not been feeling well. Vitals/I&O/Wt Last Vital Signs Temp 97.9 F 02/10/21 09:30 Pulse 107 H 02/10/21 10:45 Resp 19 H 02/10/21 11:00 BP 92/60 02/10/21 11:00 Pulse Ox 97 02/10/21 11:00 02/10/21 02/10/21 02/10/21 06:59 14:59 22:59 Intake Total 222.000 / 1728.833 240 / 240 Output Total Balance 222.000 / 1728.833 239 / 239 Weight last 48 hrs Weight 84.867 kg Physical Exam Narrative: EXAM NARRATIVE: General: No acute distress, AO x3 HEENT: PERRLA, pupils bilaterally equal and reactive, pallors not present Chest: Normal vesicular breath sounds, no added sounds, equal good air entry bilaterally CVS: S1-S2 regular, no murmurs, no tachycardia, no gallops, no rubs Abdomen: Soft, nontender, no organomegaly, bowel sounds present Neuro: No focal deficits, no facial deformity, AO x3, power 5/5 in all limbs Data : 02/10/21 13:40 02/10/21 13:40 A&P Assessment and plan (1) Atrial flutter: Status: Acute Qualifiers: Atrial flutter type: unspecified Qualified Code(s): I48.92 - Unspecified atrial flutter (2) CAD (coronary artery disease): Status: Acute (3) Diabetes: Status: Acute Additional A&P Information Atrial flutter with fibrillation: Rapid ventricular response. Chronic. Increase home Metoprolol to 75 mg twice daily. If patient gets tachycardia again. Will start patient on Cardizem drip and transition over to oral Cardizem. [id number] score: 5 for female, diabetes, history of heart failure, age 65-75. Not on anticoagulation currently. Type 2 diabetes mellitus: Hold OHA. Insulin sliding scale at moderate dose protocol. Check HbA1c. CAD: No active chest pain. Check echocardiogram. Switch from oral Lasix to IV 40 mg daily. NURIS: Do not have baseline creatinine. Patient states she follows up with nail feeder and recently her diuretics were discontinued because of worsening kidney functions. Strict input output charting. Medical reconciliation done for nephrotoxic drugs. Check urine creatinine, urine lites, urine eosinophils, renal ultrasound. Full code. Carb consistent cardiac diet. Lovenox for DVT prophylaxis. Famotidine for daily prophylaxis Attestations Medical Necessity Statement*: Requires further hospitalization for management of atrial flutter, fibrillation with rapid ventricular response, kidney dysfunction Time Spent in Patient Care: Greater than 35 minutes (>than 50% of time spent in counselling and/or direct pt care on unit) . Coding Level of Care Code Acute Medical Front Desk Coordinator for Hien Pete Diagnoses Atrial flutter I48.92 Atrial flutter type: unspecified CAD (coronary artery disease) I25.10 Diabetes E11.9
[2021-02-10 17:23] LABS: Glucose Point of Care 164 mg/dL (70-110)
[2021-02-10 17:34] LABS: Glucose Point of Care 149 mg/dL (70-110)
[2021-02-10] MEDS: ferrous gluconate 324 mg Tablet PO (17:59)
[2021-02-10] MEDS: dilTIAZem 30 mg Tablet PO ×2 (17:59→20:54)
--- NOTE | 2021-02-10 19:19 | PC.NURSE ---
Shift Note Frequent safety and comfort rounds continue. Orders and/or nursing care completed as indicated. Patient monitored for response to intervention and treatment(scardizem, metoprolol). Education provided includes[medication adjustments, goals of treatments - controlled HR with stable BP]. Patient and/or rental representative [states understanding]. Will continue to monitor.
[2021-02-10 20:05] LABS: Glucose Point of Care 200 mg/dL (70-110)
[2021-02-10 20:14] LABS: Charge for UA Resulting for Rev
[2021-02-10] MEDS: metoprolol tartrate 50 mg Tablet 75 MG PO (20:55)
[2021-02-10] MEDS: acetaminophen 325 mg Tablet 650 MG PO (21:09)
[2021-02-10 21:22] LABS: Bilirubin Urine Neg (Negative); Blood Urine Neg (Negative); Glucose Urine UA Norm (Normal); Ketones Urine Negative (Negative); Nitrate Urine Positive (Negative); Protein Urine Neg (Negative); Urine Appearance Hazy (CLEAR); Urine Color Yellow (Yellow); Urobilinogen Urine Norm (Negative); pH Urine 5 (5-7)
[2021-02-10 21:23] LABS: Add Urine Culture? Yes; Add Urine Microscopic? YES; Bacteria Urine 3+ /hpf; Leukocyte Esterase Urine 1+ (Negative); WBC Urine 25-40 /hpf (0-5)
[2021-02-10 21:37] LABS: Potassium, Radom Urine 48 mmol/L; Urine Creatinine 70 mg/dL (28-217); Urine Random Chloride 44 mmol/L; Urine Random Sodium 50 mmol/L
[2021-02-10 21:59] LABS: Eosinophil Urine No Eosinophils Seen
[2021-02-11 00:29] VITALS: BP 110/75; PULSE 63; RESP 15; O2SAT 98
[2021-02-11 04:03] VITALS: BP 109/65; PULSE 81; RESP 18; O2SAT 97
[2021-02-11 04:40] LABS: Alanine Aminotransferase 7 U/L (0-33); Albumin Level 3.6 g/dL (3.5-5.2); Alkaline Phosphatase 123 IU/L (35-105); Aspartate Amino Transferase 49 U/L (0-32); Blood Urea Nitrogen 46 mg/dL (8-23); Calcium 8.6 mg/dL (8.5-10.5); Carbon Dioxide 18 mmol/L (22-29); Chloride 104 mmol/L (98-107); Estmated Average Glucose 154; Glucose 110 mg/dL (65-115); Osmolality Calculated 295 mOsm/kg (285-295); Sodium 136 mmol/L (136-145); Total Bilirubin 0.2 mg/dL (0.15-1.2); Total Protein 6.6 g/dL (6.6-8.7)
[2021-02-11 04:42] LABS: Anion Gap 18.2 (5-19); Potassium 4.2 mmol/L (3.5-5.1)
[2021-02-11 04:49] LABS: Chol HDL Ratio 2.11 mg/dL (0.0-4.40); Cholesterol 99 mg/dL (0-200); HDL Cholesterol 47 mg/dL (60-100); LDL Cholesterol Calculated 37 mg/dL (50-129); NT Pro B Type Natriuretic Pept 10232 pg/mL (0-125); Triglycerides 74 mg/dL (0-150); VLDL Cholestrol Calculation 15 mg/dL (0-30)
[2021-02-11 06:00] VITALS: PULSE 93
[2021-02-11] MEDS: enoxaparin 40 mg/0.4 mL Syringe SUBCUT (06:16)
[2021-02-11 06:43] LABS: Glucose Point of Care 108 mg/dL (70-110)
--- NOTE | 2021-02-11 06:44 | NUR.SHIFT ---
Patient vss. Patient removed monitor at beginning of shift. Stated that she believed that her bp was better so monitoring was completed. Alert and oriented. No complaints of pain. Independent to bathroom.
[2021-02-11 09:00] VITALS: BP 90/63; PULSE 101; RESP 18; TEMP 37; O2SAT 98
[2021-02-11] MEDS: metoprolol tartrate 50 mg Tablet 75 MG PO (09:16)
[2021-02-11] MEDS: clopidogrel 75 mg Tablet PO (09:16)
[2021-02-11] MEDS: ferrous gluconate 324 mg Tablet PO (09:16)
[2021-02-11] MEDS: carbidopa-levodopa 25-100mg Tablet 1 EACH PO ×2 (09:17→13:28)
[2021-02-11] MEDS: dilTIAZem 30 mg Tablet PO (09:17)
[2021-02-11] MEDS: aspirin 81 mg EC Tablet PO (09:17)
[2021-02-11] MEDS: gabapentin 100 mg Capsule PO (09:17)
[2021-02-11 11:05] VITALS: BP 104/61; PULSE 81; RESP 21; TEMP 36.9; O2SAT 94
--- NOTE | 2021-02-11 11:22 | P.DS_ITS ---
Discharge Providers Date of Admission: 02/09/21 21:09 Date of Discharge: February 11, 2021 Attending Provider at Admission: Geneva Warren MD Attending Provider at Discharge: Rishabh Josue MD Primary Care Provider: Chanel Moseley Diagnoses at Discharge Discharge Diagnosis (1) Atrial flutter: Status: Acute Qualifiers: Atrial flutter type: unspecified Qualified Code(s): I48.92 - Unspecified atrial flutter (2) Diabetes: Status: Acute (3) CAD (coronary artery disease): Status: Acute (4) CKD (chronic kidney disease): Status: Acute Reason for Visit Reason for Visit: Chest pain Hospital Course Hospital Course Margaret Cano is a 70 year old female with Parkinson's disease, CAD, DM, HTN, intermittent A fib, CKD presenting with 2 days of palpitations.HR sustained in 140s upon presentation, did not resolve with pushes of cardizem, started on cardizem gtt. Since transfer to [facility] also received metoprolol 5mg iv once after which HR now at 52. States recently her dose of Lasix was changed by her application internship. States since changing the Lasix she has been having the symptoms and finding mild out of breath on exertion. Denies any nausea vomiting, headache, chest pain, orthopnea, loss of consciousness, fall, fever, known exposure to COVID-19. Patient was admitted to the hospital for further management of atrial fibrillation. Her dose of metoprolol was increased and Cardizem was added as it was difficult to control her heart rate. On further review of medication it seems patient is not on anticoagulation. Need of anticoagulation for stroke prevention with benefits versus adverse effects were discussed in detail. Patient agreed to be on anticoagulation. She was ambulated on the floor without having any more tachycardia and is being discharged in hemodynamically stable condition with advised to follow-up with her block cableman within next 2 weeks, primary care provider within next 1 week for repeat CMP. Physical Exam Narrative: EXAM NARRATIVE: General: No acute distress, AO x3 HEENT: PERRLA, pupils bilaterally equal and reactive, pallors not present Chest: Normal vesicular breath sounds, no added sounds, equal good air entry bilaterally CVS: S1-S2 irregularly irregular, no murmurs, no tachycardia, no gallops, no rubs Abdomen: Soft, nontender, no organomegaly, bowel sounds present Neuro: No focal deficits, no facial deformity, AO x3, power 5/5 in all limbs Discharge Data Data Completed and Pending: Completed Studies During Hospitalization Category Date Time Status CT angio chest PE protcl [id number] Urge nt Cat Scan 02/09/21 18:48 Completed XR chest 1V yusuf ble [id number] Urgent Exams 02/09/21 15:03 Completed US renal BI* [id number] Routine Ultrasound 02/11/21 16:00 Completed Pending at discharge Category Date Time Status NT Pro B Type Toya riuretic Pept AM L ABS Lab 02/12/21 04:00 Ordered NT Pro B Type Toya riuretic Pept AM L ABS Lab 02/13/21 04:00 Ordered Urine Culture Rou bianca Lab 02/10/21 19:58 Received CV. echo complete * [id number] Routine Ultrasound 02/11/21 15:59 Taken Labs from last 24 hours 02/11/21 02/11/21 02/11/21 06:36 03:46 03:46 WBC RBC Hgb Hct MCV MCH MCHC RDW Plt Count MPV Neut % (Auto) Lymph % (Auto) [place] % (Auto) Eos % (Auto) Baso % (Auto) Neut # (Auto) Lymph # (Auto) [place] # (Auto) Eos # (Auto) Baso # (Auto) Nucleated RBC % (a uto) Nucleated RBCs # Sodium 136 Potassium 4.2 Chloride 104 Carbon Dioxide 18 L Anion Gap 18.2 BUN 46 H Creatinine 1.7 H GFR Calculation Not Reportable Glucose 110 POC Glucose 108 Estimat Average Gl ucose Hemoglobin A1c Calculated Osmolal ity 295 Calcium 8.6 Iron TIBC % Saturation Unsat Iron Binding Total Bilirubin 0.2 AST 49 H ALT 7 Alkaline Phosphata se 123 H NT-Pro-B Natriuret Pep 70484 H Total Protein 6.6 Albumin 3.6 Globulin 3.0 Triglycerides 74 Cholesterol 99 LDL Cholesterol, C alc 37 L Total VLDL Cholest avelino 15 HDL Cholesterol 47 L Cholesterol/HDL Ra adilson 2.11 Urine Color Urine Appearance Urine pH Ur Specific Gravit y Urine Protein Urine Glucose (UA) Urine Ketones Urine Blood Urine Nitrate Urine Bilirubin Urine Urobilinogen Ur Leukocyte Cinthya ase Urine RBC Urine WBC Ur Eosinophil Smea r Ur Squamous Epith Cells Amorphous Sediment Urine Bacteria Urine Eosinophils Ur Random Sodium Ur Random Potassiu m Ur Random Chloride Urine Creatinine 0902/10/21 02/10/21 03:46 19:58 19:58 WBC RBC Hgb Hct MCV MCH MCHC RDW Plt Count MPV Neut % (Auto) Lymph % (Auto) [place] % (Auto) Eos % (Auto) Baso % (Auto) Neut # (Auto) Lymph # (Auto) [place] # (Auto) Eos # (Auto) Baso # (Auto) Nucleated RBC % (a uto) Nucleated RBCs # Sodium Potassium Chloride Carbon Dioxide Anion Gap BUN Creatinine GFR Calculation Glucose POC Glucose Estimat Average Gl ucose 154 Hemoglobin A1c 7.0 H Calculated Osmolal ity Calcium Iron TIBC % Saturation Unsat Iron Binding Total Bilirubin AST ALT Alkaline Phosphata se NT-Pro-B Natriuret Pep Total Protein Albumin Globulin Triglycerides Cholesterol LDL Cholesterol, C alc Total VLDL Cholest avelino HDL Cholesterol Cholesterol/HDL Ra adilson Urine Color Urine Appearance Urine pH Ur Specific Gravit y Urine Protein Urine Glucose (UA) Urine Ketones Urine Blood Urine Nitrate Urine Bilirubin Urine Urobilinogen Ur Leukocyte Cinthya ase Urine RBC Urine WBC Ur Eosinophil Smea r Not Reportable Ur Squamous Epith Cells Amorphous Sediment Urine Bacteria Urine Eosinophils No eosinophils se en Ur Random Sodium 50 Ur Random Potassiu m 48 Ur Random Chloride 44 Urine Creatinine 70 02/10/21 02/10/21 02/10/21 19:58 19:52 17:16 WBC RBC Hgb Hct MCV MCH MCHC RDW Plt Count MPV Neut % (Auto) Lymph % (Auto) [place] % (Auto) Eos % (Auto) Baso % (Auto) Neut # (Auto) Lymph # (Auto) [place] # (Auto) Eos # (Auto) Baso # (Auto) Nucleated RBC % (a uto) Nucleated RBCs # Sodium Potassium Chloride Carbon Dioxide Anion Gap BUN Creatinine GFR Calculation Glucose POC Glucose 200 H 164 H Estimat Average Gl ucose Hemoglobin A1c Calculated Osmolal ity Calcium Iron TIBC % Saturation Unsat Iron Binding Total Bilirubin AST ALT Alkaline Phosphata se NT-Pro-B Natriuret Pep Total Protein Albumin Globulin Triglycerides Cholesterol LDL Cholesterol, C alc Total VLDL Cholest avelino HDL Cholesterol Cholesterol/HDL Ra adilson Urine Color Yellow Urine Appearance Hazy A Urine pH 5 Ur Specific Gravit y 1.020 Urine Protein Neg Urine Glucose (UA) Norm Urine Ketones Negative Urine Blood Neg Urine Nitrate Positive H Urine Bilirubin Neg Urine Urobilinogen Norm Ur Leukocyte Cinthya ase 1+ H Urine RBC Not Reportable Urine WBC 25-40 H Ur Eosinophil Smea r Ur Squamous Epith Cells 5-10 H Amorphous Sediment Not Reportable Urine Bacteria 3+ H Urine Eosinophils Ur Random Sodium Ur Random Potassiu m Ur Random Chloride Urine Creatinine 02/10/21 02/10/21 02/10/21 17:05 13:40 13:40 WBC 9.8 RBC 4.25 Hgb 12.0 Hct 38.0 MCV 89.4 MCH 28.2 MCHC 31.6 RDW 16.2 H Plt Count 222 MPV 10.4 Neut % (Auto) 73.2 Lymph % (Auto) 19.2 Hemphill % (Auto) 5.4 Eos % (Auto) 1.1 Baso % (Auto) 0.7 Neut # (Auto) 7.14 Lymph # (Auto) 1.9 Hemphill # (Auto) 0.5 Eos # (Auto) 0.1 Baso # (Auto) 0.1 Nucleated RBC % (a uto) 0 Nucleated RBCs # 0.0 Sodium 137 Potassium 4.1 Chloride 102 Carbon Dioxide 19 L Anion Gap 20.1 H BUN 34 H Creatinine 1.7 H GFR Calculation Not Reportable Glucose 194 H POC Glucose 149 H Estimat Average Gl ucose Hemoglobin A1c Calculated Osmolal ity 297 H Calcium 8.6 Iron 50 TIBC 291 % Saturation 17.1 L Unsat Iron Binding 241 Total Bilirubin 0.3 AST 32 ALT 7 Alkaline Phosphata se 120 H NT-Pro-B Natriuret Pep 8389 H Total Protein 6.6 Albumin 3.8 Globulin 2.8 Triglycerides Cholesterol LDL Cholesterol, C alc Total VLDL Cholest avelino HDL Cholesterol Cholesterol/HDL Ra adilson Urine Color Urine Appearance Urine pH Ur Specific Gravit y Urine Protein Urine Glucose (UA) Urine Ketones Urine Blood Urine Nitrate Urine Bilirubin Urine Urobilinogen Ur Leukocyte Cinthya ase Urine RBC Urine WBC Ur Eosinophil Smea r Ur Squamous Epith Cells Amorphous Sediment Urine Bacteria Urine Eosinophils Ur Random Sodium Ur Random Potassiu m Ur Random Chloride Urine Creatinine Addt'l Data from Hospital Stay: Laboratory Results WBC 9.8 10^3/uL (4.0- 10.0) 02/10/21 13:40 RBC 4.25 10^6/uL (4.1 -5.3) 02/10/21 13:40 Hgb 12.0 g/dL (11.5-1 5.3) 02/10/21 13:40 Hct 38.0 % (37.0-47.0 ) 02/10/21 13:40 MCV 89.4 fl (81-99) 02/10/21 13:40 MCH 28.2 pg (28.0-34. 0) 02/10/21 13:40 MCHC 31.6 g/dL (30.0-3 6.0) 02/10/21 13:40 RDW 16.2 % (12.1-15.1 ) H 02/10/21 13:40 Plt Count 222 10^3/cmm (130 -400) 02/10/21 13:40 MPV 10.4 fL (7.4-10.4 ) 02/10/21 13:40 Neut % (Auto) 73.2 % 02/10/21 13:40 Lymph % (Auto) 19.2 % 02/10/21 13:40 Hemphill % (Auto) 5.4 % 02/10/21 13:40 Eos % (Auto) 1.1 % 02/10/21 13:40 Baso % (Auto) 0.7 % 02/10/21 13:40 Neut # (Auto) 7.14 10^3/uL (1.8 -7.7) 02/10/21 13:40 Lymph # (Auto) 1.9 10^3/uL (0.8- 4.8) 02/10/21 13:40 [place]phill # (Auto) 0.5 10^3/uL (0.2- 0.9) 02/10/21 13:40 Eos # (Auto) 0.1 10^3/uL (0.0- 0.8) 02/10/21 13:40 Baso # (Auto) 0.1 10^3/uL (0.0- 0.1) 02/10/21 13:40 Nucleated RBC % (a uto) 0 % 02/10/21 13:40 Nucleated RBCs # 0.0 /100WBC 02/10/21 13:40 D-Dimer 1.61 ug/mIFEU (0- 0.59) H 02/09/21 18:00 Sodium 136 mmol/L (136-1 45) 02/11/21 03:46 Potassium 4.2 mmol/L (3.5-5 .1) 02/11/21 03:46 Chloride 104 mmol/L (98-10 7) 02/11/21 03:46 Carbon Dioxide 18 mmol/L (22-29) L 02/11/21 03:46 Anion Gap 18.2 (5-19) 02/11/21 03:46 BUN 46 mg/dL (8-23) H 02/11/21 03:46 Creatinine 1.7 mg/dL (0.5-0. 9) H 02/11/21 03:46 GFR Calculation Not Reportable 02/11/21 03:46 Glucose 110 mg/dL (65-115 ) 02/11/21 03:46 POC Glucose 108 mg/dL (70-110 ) 02/11/21 06:36 Estimat Average Gl ucose 154 02/11/21 03:46 Hemoglobin A1c 7.0 % (4.0-6.0) H 02/11/21 03:46 Calculated Osmolal ity 295 mOsm/kg (285- 295) 02/11/21 03:46 Calcium 8.6 mg/dL (8.5-10 .5) 02/11/21 03:46 Iron 50 ug/dL (37-145) 02/10/21 13:40 TIBC 291 mcg/dl 02/10/21 13:40 % Saturation 17.1 % (20-50) L 02/10/21 13:40 Unsat Iron Binding 241 ug/dL (112-34 7) 02/10/21 13:40 Total Bilirubin 0.2 mg/dL (0.15-1 .2) 02/11/21 03:46 AST 49 U/L (0-32) H 02/11/21 03:46 ALT 7 U/L (0-33) 02/11/21 03:46 Alkaline Phosphata se 123 IU/L (35-105) H 02/11/21 03:46 Troponin T Baselin e 76 ng/L (0-10) H 02/09/21 18:00 Troponin T 120 Min [place] 61.34 ng/L (0-10) H 02/09/21 20:27 Delta Troponin T -14.66 ABS# (0-10 ) L 02/09/21 20:27 Troponin T Hi Sens 6Hr 61.29 ng/L (0-10) H 02/09/21 23:39 Troponin T Hi Sens 6Hr Delta -14.71 ng/L (0-12 ) L 02/09/21 23:39 NT-Pro-B Natriuret Pep 16366 pg/mL (0-12 5) H 02/11/21 03:46 Total Protein 6.6 g/dL (6.6-8.7 ) 02/11/21 03:46 Albumin 3.6 g/dL (3.5-5.2 ) 02/11/21 03:46 Globulin 3.0 g/dL (1.3-4.6 ) 02/11/21 03:46 Triglycerides 74 mg/dL (0-150) 02/11/21 03:46 Cholesterol 99 mg/dL (0-200) 02/11/21 03:46 LDL Cholesterol, C alc 37 mg/dL (50-129) L 02/11/21 03:46 Total VLDL Cholest avelino 15 mg/dL (0-30) 02/11/21 03:46 HDL Cholesterol 47 mg/dL (60-100) L 02/11/21 03:46 Cholesterol/HDL Ra adilson 2.11 mg/dL (0.0-4 .40) 02/11/21 03:46 TSH 0.55 uIU/mL (0.27 -4.20) 02/09/21 23:39 Urine Color Yellow (Yellow) 02/10/21 19:58 Urine Appearance Hazy (CLEAR) A 02/10/21 19:58 Urine pH 5 (5-7) 02/10/21 19:58 Ur Specific Gravit y 1.020 (1.005-1.0 30) 02/10/21 19:58 Urine Protein Neg (Negative) 02/10/21 19:58 Urine Glucose (UA) Norm (Normal) 02/10/21 19:58 Urine Ketones Negative (Negati ve) 02/10/21 19:58 Urine Blood Neg (Negative) 02/10/21 19:58 Urine Nitrate Positive (Negati ve) H 02/10/21 19:58 Urine Bilirubin Neg (Negative) 02/10/21 19:58 Urine Urobilinogen Norm mg/dL (Negat tim) 02/10/21 19:58 Ur Leukocyte Cinthya ase 1+ (Negative) H 02/10/21 19:58 Urine RBC Not Reportable 02/10/21 19:58 Urine WBC 25-40 /hpf (0-5) H 02/10/21 19:58 Ur Eosinophil Smea r Not Reportable 02/10/21 19:58 Ur Squamous Epith Cells 5-10 /hpf (0-5) H 02/10/21 19:58 Amorphous Sediment Not Reportable 02/10/21 19:58 Urine Bacteria 3+ /hpf (NONE) H 02/10/21 19:58 Urine Eosinophils No eosinophils se en 02/10/21 19:58 Ur Random Sodium 50 mmol/L 02/10/21 19:58 Ur Random Potassiu m 48 mmol/L 02/10/21 19:58 Ur Random Chloride 44 mmol/L 02/10/21 19:58 Urine Creatinine 70 mg/dL (28-217) 02/10/21 19:58 SARS-CoV-2 Ag (Rap id) Negative (Negati ve) 02/09/21 18:18 Impressions Chest X-Ray 02/09/21 15:03 Impression: Atherosclerosis. Chest CTA 02/09/21 18:48 IMPRESSION: 1. No evidence for pulmonary embolus or other acute finding. 2. 4 mm left pulmonary nodule. For patients at low risk (minimal or absent history of smoking and of other known risk factors), no routine follow-up is indicated. For patients at high risk (history of smoking or of other known risk factors), consider optional CT Chest at 12 months. (Reference: Annabella) 3. Multiple tiny fat density lesions in the liver most likely represent lipomas or angiomyolipomas. References: Annabella H, et al. Guidelines for Management of Incidental Pulmonary Nodules Detected on CT Images: From the Fleischner Society 2017. Radiology. 2017;284(1):228-243. Radiation Dose CTDIVOL = (mGy): DLP = 529.23 (mGy-cm) Renal Ultrasound 02/11/21 16:00 IMPRESSION: Normal renal ultrasound. Vitals: Last Vital Signs Temp 98.5 F 02/11/21 11:05 Pulse 81 02/11/21 11:05 Resp 21 H 02/11/21 11:05 BP 104/61 02/11/21 11:05 Pulse Ox 94 02/11/21 11:05 Discharge Plan Discharge Patient Disposition: Home Condition: Stable Prescriptions: New ferrous gluconate 324 mg (37.5 mg iron) Tablet 324 mg PO BIDWM 30 Days Qty: 30 RF: 0 Cardizem CD 120 mg capsule,extended release 24hr 120 mg PO .q10am Qty: 30 RF: 0 Xarelto 20 mg tablet 20 mg PO DAILY Qty: 30 RF: 0 Continued Levemir FlexTouch U-100 Insuln 100 unit/mL (3 mL) insulin pen 20 unit SUBCUT .COMPLEX RF: 0 Victoza 2-Evangelist 0.6 mg/0.1 mL (18 mg/3 mL) pen injector 1.8 mg SUBCUT DAILY RF: 0 nitroglycerin 0.4 mg tablet, sublingual 0.4 mg SUBLINGUAL Q5M PRN (Reason: Chest Pain) RF: 0 Myrbetriq 25 mg tablet extended release 24 hr 25 mg PO DAILY RF: 0 cholecalciferol (vitamin D3) 25 mcg (1,000 unit) capsule 25 mcg PO DAILY RF: 0 gabapentin 100 mg capsule 100 mg PO BID RF: 0 galantamine 16 mg capsule,ext rel. pellets 24 hr 16 mg PO QAM Qty: 30 RF: 0 galantamine 24 mg capsule,ext rel. pellets 24 hr 24 mg PO QAM Qty: 30 RF: 3 carbidopa-levodopa [Sinemet] 25-100 mg tablet 1 tab PO QID Qty: 120 RF: 6 Aspir-81 81 mg Tablet,Delayed Release (Dr/Ec) 81 mg PO DAILY RF: 0 galantamine 8 mg capsule,ext rel. pellets 24 hr 8 mg PO DAILY RF: 0 Changed furosemide 40 mg tablet 60 mg PO DAILY Qty: 30 RF: 0 metoprolol succinate 25 mg tablet extended release 24 hr 75 mg PO DAILY Qty: 120 RF: 0 Discontinued clopidogrel 75 mg tablet 75 mg PO DAILY RF: 0 Discharge Orders: Discharge Order (Routine); Ordered 02/11/21 Ordered By: Rishabh Josue Referrals: Chanel Moseley PA [Primary Care Provider] - 1 week Discharge Diet: Cardiac Discharge Activity: Resume usual activity Patient Instructions: Opioid Safety Activity Restrictions/Additional Instructions: Follow-up with your primary care provider within next 1 week for repeat CMP. Cardizem has been added to your medication list. Xarelto is a blood thinner which has been added. Stop taking Plavix. Please follow-up with your outpatient block cableman within next 2 weeks. Please check your body weight at home daily. If your body weight increases more than 5 pounds take an extra dose of Lasix. Discharge Attestations Time Spent in Discharge Care*: greater than 30 min Specific Discharge Activities: educating patient, discussing with pcp/other providers, discussing with case packer/social workers/dc planners, documenting/other paperwork and evaluating patient/reviewing data Status at Discharge: Cognitive status at discharge: cognitively intact , Behavioral status at discharge: cooperative , Functional status at discharge: independent ambulation Overall status at discharge: patient is back to baseline Quality Metrics Clinical Quality Measures During this hospital stay, did patient experience: None Coding Level of Care Code Acute Chg FW DC note Diagnoses Atrial flutter I48.92 Atrial flutter type: unspecified Diabetes E11.9 CAD (coronary artery disease) I25.10 CKD (chronic kidney disease) N18.9
[2021-02-11 13:00] VITALS: BP 106/80; PULSE 100; RESP 18; TEMP 36.6; O2SAT 98
--- NOTE | 2021-02-11 14:01 | PC.NURSE ---
meds to bed delivered
--- NOTE | 2021-02-11 14:20 | PC.CHAP ---
Pastoral Care Encounter/Spiritual Assessment Type of Contact [] Declined cafeteria counter attendant visit [] Patient/Family/Request visit [] Outpatient visit [xx] Follow-up visit [] Physician referral [] Code/Alert [xx] Routine visit [] Staff referral [] Actively dying [] Patient sleeping [] Family support [] [] Out of room [] Palliative care [] [] Receiving care in room [] Pre-surgical visit [] Trauma [] Long length of stay [] ICU visit [] Other: Relational/Emotional Strength [xx] Patient feels connected with others/family/visitors/staff [] Distress [] Loneliness/isolation [] Abandonment Spirituality of Patient [xx] Person of Mary Jo [xx] Attends Evangelical of their Mary Jo [xx] Believes in Prayer [xx] Reads Bible or Spiritism materials [] There are Spiritual issues to be addressed Lcac Operator Interventions [xx] Prayer [xx] Active listening [] Non-anxious presence [] Spiritual/emotional support [] Crisis/trauma care [] Spiritual counseling [] Bereavement support [] Provided bereavement packet [] Provided Bible/devotional materials [] Provided toy/stuffed animal, coloring book to patient or family member [] Provided Communion [] Anointing/[place] [] Salvation [xx] Completed spiritual assessment [] Other: Impact on Illness or Injury [] Angry [] Fearful [] Anxious [] Often cries [] Exhaustion [] Unable to work [] Unable to attend roman catholic [] Unable to walk/stand [] Unable to read [] Unable to drive [] Unable to eat/drink [] Unable to sleep [] Unable to be with family [] Patient intubated [] Other: Summary Patient is worried about her kids and grandkids getting covid-19 but they are very healthy for now. She is more concerned about them than herself. Time spent with patient 7 minutes
--- NOTE | 2021-02-11 14:30 | PC.NURSE ---
Discharge Note Patient discharged to home via wheelchair accompanied by . Discharge instructions reviewed with patient and/or provider relations representative. Mobile pharmacy medications and/or prescriptions provided. Educated pt on new meds actions, dosing and possible side effects. Informed pt to follow-up w/ her tool designer in 2 weeks as instructed in [place]. Educated pt to monitor for any signs of worsening of symptoms such as increasing chest pain, increasing SOB and GI bleeding. Pt and verbalizes understanding. Belongings/home medications returned.
[2021-02-11 15:52] LABS: Glucose Point of Care 179 mg/dL (70-110)
--- NOTE | 2021-02-11 15:59 | USCV_ITS ---
Margaret Cano Age: 70 Gender: F : 1950 Exam Date: 02/11/2021 06:23 Ordering Phys: Rishabh Josue MD Technologist: Chanel Diaz [place] [facility] [place]: CAD, A-FIB BP: 109 / 65 HR: 107 Rhythm: Atrial flutter Technical Quality: Suboptimal MEASUREMENTS (Male / Female) Normal Values 2D ECHO LV Diastolic Diameter PLAX 4.3 cm 4.2 - 5.9 / 3.9 - 5.3 cm LV Systolic Diameter PLAX 3.6 cm IVS Diastolic Thickness 0.9 cm 0.6 - 1.0 / 0.6 - 0.9 cm IVS Systolic Thickness 1.2 cm LVPW Diastolic Thickness 1.0 cm 0.6 - 1.0 / 0.6 - 0.9 cm LVPW Systolic Thickness 1.3 cm LVOT Diameter 2.0 cm LV Ejection Fraction 2D Teich 33.5 % LV Ejection Fraction MOD 2C 37.9 % LV Ejection Fraction 2C AL 41.2 % LA Diameter 4.0 cm LA Width 3.9 cm LA Height 5.2 cm RA Width 3.1 cm RA Height 4.9 cm Aorta at Sinotubular Diameter 2.1 cm M-MODE Aortic Annulus Diameter 2.2 cm LA Ao Ratio MM 1.8 DOPPLER AV Peak Velocity 133.3 cm/s LVOT Peak Velocity 55.0 cm/s AV Area Cont Eq vti 1.4 cm squared AV Area Cont Eq pk 1.3 cm squared MV Peak Velocity 161.0 cm/s MV Area PHT 3.7 cm squared MV E' Velocity 76.0 cm/s Mitral E to MV E' Ratio 31.3 Mitral E to LV E' Lateral Ratio 29.4 Mitral E to LV E' Septal Ratio 33.4 TR Peak Velocity 273.7 cm/s TR Peak Gradient 30.0 mmHg TR Mean Velocity 231.3 cm/s TR Mean Gradient 22.2 mmHg TR Velocity Time Integral 96.0 cm TV Peak E Velocity 69.0 cm/s Right Atrial Pressure 15.0 mmHg Pulmonary Artery Systolic Pressu 45.0 mmHg PV Peak Velocity 89.0 cm/s RV Acceleration Time 0.1 s RV Ejection Time 0.3 s RV AcT/ET 0.2 FINDINGS Left Ventricle Normal left ventricular cavity size. Normal left ventricular wall thickness. Moderately decreased left ventricular systolic function. Left ventricular ejection fraction is estimated at 30- 35 %. This study is inadequate for estimation of regional wall motion abnormality. Abnormal septal motion consistent with conduction abnormality. Abnormal diastolic function. Right Ventricle Probably mildly dilated right ventricle with decreased right ventricle systolic function. Right ventricular systolic pressure 45 mmHg. Pacemaker wire visualized in the right ventricle. Right Atrium Moderately increased right atrial size. Right atrial pressure estimated at 15 mmHg. Left Atrium Moderately increased left atrial size. Mitral Valve Severe mitral annular calcification. No significant mitral valve stenosis. Mild mitral valve regurgitation. Aortic Valve Thickened and calcified probably trileaflet aortic valve. Mild aortic valve stenosis, mean gradient 4.2 mmHg, TERESA 1.4 cm squared. No aortic valve regurgitation. Tricuspid Valve Tricuspid valve not well visualized. Mild tricuspid valve regurgitation. Pulmonic Valve Pulmonic valve not well visualized. Pericardium No pericardial effusion. Aorta Normal-sized aortic root. Dilated inferior vena cava with decreased respiratory variation. CONCLUSIONS 1. This is a technically very difficult study. 2. Normal left ventricular cavity size. Normal left ventricular wall thickness. Moderately decreased left ventricular systolic function. Left ventricular ejection fraction is estimated at 30- 35 %. This study is inadequate for estimation of regional wall motion abnormality. Abnormal diastolic function. 3. Probably mildly dilated right ventricle with decreased right ventricle systolic function. 4. Mild pulmonary hypertension with pulmonary artery pressure estimated at 45 mmHg. 5. Moderate biatrial enlargement. 6. Mild aortic valve stenosis, mean gradient 4.2 mmHg, TERESA 1.4 cm squared. 7. When compared to previous echocardiogram dated 02/01/2017, left ventricle and right ventricular systolic function has decreased. Pacemaker wire is also noted. Aileen Mcconnell MD (Electronically Signed) Final Date: 11 February 2021 14:25 S
--- NOTE | 2021-02-11 16:00 | US_ITS ---
WS: [id number] RENAL ULTRASOUND HISTORY: Kidney dysfunction COMPARISON: None available. TECHNIQUE: 2-D and color Doppler imaging of the kidney submitted. Right kidney: 10.2 cm x 3.9 cm x 4.1 cm. Normal echogenicity with no hydronephrosis or mass. Left kidney: 8.8 cm x 5.0 cm x 3.8 cm. Normal echogenicity with no hydronephrosis or mass. Low normal size. Aorta: Normal. Urinary Bladder: Minimally distended bladder. Nondistention resulting in mild wall thickening. US/US renal BI* [id number] IMPRESSION: Normal renal ultrasound.
--- NOTE | 2021-02-14 15:50 | PC.SOCIAL ---
discharge follow up call made. spoke with pt, she states she is doing better. patient received medications prior to discharge. patient is taking as prescribed. pt is aware of follow up appointment with pcp. patient denies questions or concerns.
== END 2021-02-11 14:30 | disposition home or self-care (01) | DRG 309 ==
LOC: ER 21:17 → CSU 21:37
PROVIDERS: Physician Assistant; Admitting Provider Student in an Organized Health Care Education/Training Program; Emergency Provider Emergency Medicine; PCP Physician Assistant; Visit Provider Student in an Organized Health Care Education/Training Program
DX: I48.91 Unspecified atrial fibrillation (principal); N17.9 Acute kidney failure, unspecified; G20 Parkinson's disease; I25.10 Atherosclerotic heart disease of native coronary artery without angina pectoris; Z95.5 Presence of coronary angioplasty implant and graft; Z95.1 Presence of aortocoronary bypass graft; E78.00 Pure hypercholesterolemia, unspecified; Z95.0 Presence of cardiac pacemaker; E11.22 Type 2 diabetes mellitus with diabetic chronic kidney disease; I12.9 Hypertensive chronic kidney disease with stage 1 through stage 4 chronic kidney disease, or unspecified chronic kidney disease; N18.9 Chronic kidney disease, unspecified; Z79.4 Long term (current) use of insulin; Z79.82 Long term (current) use of aspirin
CPT/HCPCS: 36415; 36416; 71045; 71275; 76770; 80053; 80061; 81001; 81003; 82436; 82570; 82962; 83036; 83540; 83550; 83880; 84133; 84300; 84443; 84484; 85025; 85378; 85999; 87077; 87086; 87186; 87426; 93005; 93306; 96361; 96372; 96374; 96376; 99291; J1650; J1815; J1940; J3490; J7030; J7040; Q9967

== ENCOUNTER 2021-03-04 08:50 | Outpatient (RCR) | payer SELFPAY | END 2021-04-03 23:59 | disposition home or self-care (01) | LOC: CR 08:50 | PROVIDERS: PCP Physician Assistant; Referring Provider Internal Medicine Cardiovascular Disease; Visit Provider Internal Medicine Cardiovascular Disease | DX: Z95.1 Presence of aortocoronary bypass graft (principal) ==

== ENCOUNTER 2021-03-31 06:00 | Outpatient (RCR) | payer MEDICARE, OTHER, SELFPAY | END 2021-04-03 23:59 | disposition home or self-care (01) | LOC: SPT 06:00 | PROVIDERS: PCP Physician Assistant; Referring Provider Physician Assistant; Visit Provider Physician Assistant | DX: M25.512 Pain in left shoulder (principal) | CPT/HCPCS: 97110; 97161 ==

== ENCOUNTER 2021-04-04 06:00 | Outpatient (RCR) | payer MEDICARE, OTHER, SELFPAY | END 2021-05-03 23:59 | disposition home or self-care (01) | LOC: SPT 06:00 | PROVIDERS: PCP Physician Assistant; Referring Provider Physician Assistant; Visit Provider Physician Assistant | DX: M25.512 Pain in left shoulder (principal) | CPT/HCPCS: 97110 ==

== ENCOUNTER 2021-04-04 12:36 | Outpatient (RCR) | payer SELFPAY | END 2021-05-03 23:59 | disposition home or self-care (01) | LOC: CR 12:36 | PROVIDERS: PCP Physician Assistant; Referring Provider Internal Medicine Cardiovascular Disease; Visit Provider Internal Medicine Cardiovascular Disease | DX: Z95.1 Presence of aortocoronary bypass graft (principal) ==

== ENCOUNTER 2021-05-04 06:00 | Outpatient (RCR) | payer MEDICARE, OTHER, SELFPAY | END 2021-05-05 17:31 | disposition home or self-care (01) | LOC: SPT 06:00 | PROVIDERS: PCP Physician Assistant; Referring Provider Physician Assistant; Visit Provider Physician Assistant | DX: M25.512 Pain in left shoulder (principal) | CPT/HCPCS: 97110 ==

== ENCOUNTER 2021-05-04 09:57 | Outpatient (RCR) | payer SELFPAY | END 2021-06-03 23:59 | disposition home or self-care (01) | LOC: CR 09:57 | PROVIDERS: PCP Physician Assistant; Referring Provider Internal Medicine Cardiovascular Disease; Visit Provider Internal Medicine Cardiovascular Disease | DX: Z95.1 Presence of aortocoronary bypass graft (principal) ==

== ENCOUNTER → 2021-05-30 16:15 | Outpatient (BNVA) | payer MEDICARE, OTHER, SELFPAY | PROVIDERS: PCP Physician Assistant; Visit Provider Internal Medicine Cardiovascular Disease | DX: I11.0 Hypertensive heart disease with heart failure (principal); I50.33 Acute on chronic diastolic (congestive) heart failure; R06.02 Shortness of breath; I50.20 Unspecified systolic (congestive) heart failure; I25.5 Ischemic cardiomyopathy; I48.92 Unspecified atrial flutter; Z95.810 Presence of automatic (implantable) cardiac defibrillator; I25.118 Atherosclerotic heart disease of native coronary artery with other forms of angina pectoris; E78.5 Hyperlipidemia, unspecified | CPT/HCPCS: 80048; 83880 ==

== ENCOUNTER 2021-06-06 08:27 | Outpatient (RCR) | payer SELFPAY | END 2021-07-04 23:59 | disposition home or self-care (01) | LOC: CR 08:27 | PROVIDERS: PCP Physician Assistant; Referring Provider Internal Medicine Cardiovascular Disease; Visit Provider Internal Medicine Cardiovascular Disease | DX: Z95.1 Presence of aortocoronary bypass graft (principal) ==

== ENCOUNTER → 2021-06-28 12:19 | Outpatient (BNVA) | payer MEDICARE, OTHER, SELFPAY | PROVIDERS: PCP Physician Assistant; Visit Provider Specialist | DX: G20 Parkinson's disease (principal); H02.402 Unspecified ptosis of left eyelid; G25.81 Restless legs syndrome | CPT/HCPCS: 99214 ==

== ENCOUNTER 2021-07-05 13:25 | Outpatient (RCR) | payer SELFPAY | END 2021-08-01 23:59 | disposition home or self-care (01) | LOC: CR 13:25 | PROVIDERS: PCP Physician Assistant; Referring Provider Internal Medicine Cardiovascular Disease; Visit Provider Internal Medicine Cardiovascular Disease | DX: Z95.1 Presence of aortocoronary bypass graft (principal) ==

== ENCOUNTER → 2021-07-12 09:55 | Outpatient (BNVA) | payer MEDICARE, OTHER, SELFPAY | PROVIDERS: PCP Physician Assistant; Visit Provider Internal Medicine Cardiovascular Disease | DX: E78.5 Hyperlipidemia, unspecified (principal); I25.118 Atherosclerotic heart disease of native coronary artery with other forms of angina pectoris; I25.5 Ischemic cardiomyopathy; I48.92 Unspecified atrial flutter; I73.9 Peripheral vascular disease, unspecified | CPT/HCPCS: 80048; 83880 ==

== ENCOUNTER → 2021-07-25 09:40 | Outpatient (BNVA) | payer MEDICARE, OTHER, SELFPAY | PROVIDERS: PCP Physician Assistant; Visit Provider Internal Medicine Cardiovascular Disease | DX: I10 Essential (primary) hypertension (principal); I25.10 Atherosclerotic heart disease of native coronary artery without angina pectoris; I25.5 Ischemic cardiomyopathy | CPT/HCPCS: 80048 ==

== ENCOUNTER 2021-08-02 11:30 | Outpatient (RCR) | payer SELFPAY | END 2021-09-01 23:59 | disposition home or self-care (01) | LOC: CR 11:30 | PROVIDERS: PCP Physician Assistant; Referring Provider Internal Medicine Cardiovascular Disease; Visit Provider Internal Medicine Cardiovascular Disease | DX: Z95.1 Presence of aortocoronary bypass graft (principal) ==

== ENCOUNTER 2021-09-02 12:33 | Outpatient (RCR) | payer SELFPAY | END 2021-10-01 23:59 | disposition home or self-care (01) | LOC: CR 12:33 | PROVIDERS: PCP Physician Assistant; Referring Provider Internal Medicine Cardiovascular Disease; Visit Provider Internal Medicine Cardiovascular Disease | DX: Z95.1 Presence of aortocoronary bypass graft (principal) ==

== ENCOUNTER 2021-09-20 10:41 | Emergency (ER) | payer MEDICARE, OTHER, SELFPAY ==
[2021-09-20 10:43] VITALS: BP 96/73; PULSE 67; RESP 16; TEMP 36.4; O2SAT 99; BMI 34.9
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
[2021-09-20 11:55] LABS: Basophils # 0.1 10^3/uL (0.0-0.1); Basophils % 0.7 %; Eosinophils # 0.5 10^3/uL (0.0-0.8); Eosinophils % 4.2 %; Hematocrit 39.1 % (37.0-47.0); Lymphocytes # 1.3 10^3/uL (0.8-4.8); Lymphocytes % 11.8 %; Mean Corpuscular HGB Conc 30.7 g/dL (30.0-36.0); Mean Corpuscular Hemoglobin 30.5 pg (28.0-34.0); Mean Corpuscular Volume 99.5 fl (81-99); Mean Platelet Volume 10.3 fL (7.4-10.4); Monocytes # 0.7 10^3/uL (0.2-0.9); Monocytes % 6.5 %; Neutrophils # 8.13 10^3/uL (1.8-7.7); Nucleated Red Blood Cells % 0 %; Platelet Count 192 10^3/cmm (130-400); Red Blood Count 3.93 10^6/uL (4.1-5.3); Red Cell Distribution Width 14.6 % (12.1-15.1); White Blood Count 10.7 10^3/uL (4.0-10.0)
[2021-09-20 12:23] LABS: Alanine Aminotransferase 6 U/L (0-33); Albumin Level 4.1 g/dL (3.5-5.2); Alkaline Phosphatase 133 IU/L (35-105); Anion Gap 16.3 (5-19); Aspartate Amino Transferase 33 U/L (0-32); Blood Urea Nitrogen 29 mg/dL (8-23); Calcium 9.6 mg/dL (8.5-10.5); Carbon Dioxide 22 mmol/L (22-29); Chloride 103 mmol/L (98-107); Glucose 287 mg/dL (65-115); Osmolality Calculated 298 mOsm/kg (285-295); Potassium 5.3 mmol/L (3.5-5.1); Sodium 136 mmol/L (136-145); Total Bilirubin 0.2 mg/dL (0.15-1.2); Total Protein 7.1 g/dL (6.6-8.7)
[2021-09-20 12:29] VITALS: BP 124/55; PULSE 60; RESP 13; O2SAT 99
[2021-09-20] MEDS: iodixanol 320 mg/mL 100mL Btl IV (13:01)
[2021-09-20 14:36] VITALS: BP 124/55; PULSE 60; RESP 14; O2SAT 97
== END 2021-09-20 14:30 | disposition home or self-care (01) ==
PROVIDERS: Emergency Provider Physician Assistant; PCP Physician Assistant
DX: M54.2 Cervicalgia (principal); R51.9 Headache, unspecified; V03.00XA Pedestrian on foot injured in collision with car, pick-up truck or van in nontraffic accident, initial encounter
CPT/HCPCS: 70450; 71260; 72125; 74177; 80053; 85025; 99283; Q9967

== ENCOUNTER 2021-10-03 11:59 | Outpatient (RCR) | payer SELFPAY | END 2021-11-01 23:59 | disposition home or self-care (01) | LOC: CR 11:59 | PROVIDERS: PCP Physician Assistant; Referring Provider Internal Medicine Cardiovascular Disease; Visit Provider Internal Medicine Cardiovascular Disease | DX: Z95.1 Presence of aortocoronary bypass graft (principal) ==

== ENCOUNTER → 2021-10-03 14:55 | Outpatient (BNVA) | payer MEDICARE, OTHER, SELFPAY | PROVIDERS: PCP Physician Assistant; Visit Provider Nurse Practitioner Family | DX: I25.5 Ischemic cardiomyopathy (principal); Z95.810 Presence of automatic (implantable) cardiac defibrillator; I50.1 Left ventricular failure, unspecified; I10 Essential (primary) hypertension | CPT/HCPCS: 80048; 83880; 99214 ==

== ENCOUNTER → 2021-10-07 14:43 | Outpatient (BNVA) | payer MEDICARE, OTHER, SELFPAY | PROVIDERS: PCP Physician Assistant; Visit Provider Podiatrist Foot & Ankle Surgery | DX: E11.621 Type 2 diabetes mellitus with foot ulcer (principal); L97.512 Non-pressure chronic ulcer of other part of right foot with fat layer exposed; E11.42 Type 2 diabetes mellitus with diabetic polyneuropathy; L60.3 Nail dystrophy; L97.511 Non-pressure chronic ulcer of other part of right foot limited to breakdown of skin | CPT/HCPCS: 11721; 99213; 99214 ==

== ENCOUNTER 2021-10-21 15:25 | Outpatient (CLI) | payer MEDICARE, OTHER, SELFPAY ==
[2021-10-21 16:06] LABS: Blood Urea Nitrogen 42 mg/dL (8-23); Calcium 8.5 mg/dL (8.5-10.5); Carbon Dioxide 22 mmol/L (22-29); Chloride 96 mmol/L (98-107); Glucose 117 mg/dL (65-115); NT Pro B Type Natriuretic Pept 2112 pg/mL (0-125); Osmolality Calculated 286 mOsm/kg (285-295); Sodium 132 mmol/L (136-145)
== END 2021-10-21 15:26 | disposition home or self-care (01) ==
PROVIDERS: Visit Provider Nurse Practitioner Family
DX: I25.5 Ischemic cardiomyopathy (principal); I25.118 Atherosclerotic heart disease of native coronary artery with other forms of angina pectoris; I48.92 Unspecified atrial flutter; E78.5 Hyperlipidemia, unspecified; I73.9 Peripheral vascular disease, unspecified
CPT/HCPCS: 36415; 80048; 83880

== ENCOUNTER 2021-11-02 13:03 | Outpatient (RCR) | payer SELFPAY | END 2021-12-01 23:59 | disposition home or self-care (01) | LOC: CR 13:03 | PROVIDERS: PCP Physician Assistant; Referring Provider Internal Medicine Cardiovascular Disease; Visit Provider Internal Medicine Cardiovascular Disease | DX: Z95.1 Presence of aortocoronary bypass graft (principal) ==

== ENCOUNTER → 2021-11-04 14:32 | Outpatient (BNVA) | payer MEDICARE, OTHER, SELFPAY | PROVIDERS: PCP Physician Assistant; Visit Provider Podiatrist Foot & Ankle Surgery | DX: L97.511 Non-pressure chronic ulcer of other part of right foot limited to breakdown of skin (principal) | CPT/HCPCS: 99213; 99214 ==

== ENCOUNTER → 2021-11-29 12:52 | Outpatient (BNVA) | payer MEDICARE, OTHER, SELFPAY | PROVIDERS: PCP Physician Assistant; Visit Provider Specialist | DX: G20 Parkinson's disease (principal); G62.9 Polyneuropathy, unspecified | CPT/HCPCS: 96116; 99214 ==

== ENCOUNTER 2021-12-02 10:17 | Outpatient (RCR) | payer SELFPAY | END 2022-01-01 23:59 | disposition home or self-care (01) | LOC: CR 10:17 | PROVIDERS: PCP Physician Assistant; Referring Provider Internal Medicine Cardiovascular Disease; Visit Provider Internal Medicine Cardiovascular Disease | DX: Z95.1 Presence of aortocoronary bypass graft (principal) ==

== ENCOUNTER → 2021-12-20 08:45 | Outpatient (BNVA) | payer MEDICARE, OTHER, SELFPAY | PROVIDERS: PCP Physician Assistant; Visit Provider Nurse Practitioner Family | DX: I25.5 Ischemic cardiomyopathy (principal); I13.10 Hypertensive heart and chronic kidney disease without heart failure, with stage 1 through stage 4 chronic kidney disease, or unspecified chronic kidney disease; E11.22 Type 2 diabetes mellitus with diabetic chronic kidney disease; N18.9 Chronic kidney disease, unspecified; Z79.4 Long term (current) use of insulin; E11.621 Type 2 diabetes mellitus with foot ulcer; L97.511 Non-pressure chronic ulcer of other part of right foot limited to breakdown of skin | CPT/HCPCS: 99213; 99214 ==

== ENCOUNTER 2021-12-21 06:00 | Outpatient (RCR) | payer MEDICARE, OTHER, SELFPAY | END 2022-01-01 23:59 | disposition home or self-care (01) | LOC: SPT 06:00 | PROVIDERS: PCP Physician Assistant; Referring Provider Specialist; Visit Provider Specialist | DX: G20 Parkinson's disease (principal) | CPT/HCPCS: 97110; 97162 ==

== ENCOUNTER 2021-12-22 10:03 | Outpatient (CLI) | payer MEDICARE, OTHER, SELFPAY ==
[2021-12-22 11:09] LABS: Anion Gap 16.1 (5-19); Blood Urea Nitrogen 39 mg/dL (8-23); Calcium 9.4 mg/dL (8.5-10.5); Carbon Dioxide 23 mmol/L (22-29); Chloride 101 mmol/L (98-107); Glucose 147 mg/dL (65-115); Osmolality Calculated 294 mOsm/kg (285-295); Potassium 4.1 mmol/L (3.5-5.1); Sodium 136 mmol/L (136-145)
== END 2021-12-22 10:04 | disposition home or self-care (01) ==
LOC: LAB 10:11
PROVIDERS: PCP Physician Assistant; Visit Provider Nurse Practitioner Family
DX: I50.1 Left ventricular failure, unspecified (principal)
CPT/HCPCS: 36415; 80048

== ENCOUNTER 2022-01-02 06:00 | Outpatient (RCR) | payer MEDICARE, OTHER, SELFPAY | END 2022-01-26 23:59 | disposition home or self-care (01) | LOC: SPT 06:00 | PROVIDERS: PCP Physician Assistant; Referring Provider Specialist; Visit Provider Specialist | DX: G20 Parkinson's disease (principal) | CPT/HCPCS: 97110; 97112 ==

== ENCOUNTER 2022-01-02 10:48 | Outpatient (RCR) | payer SELFPAY | END 2022-02-01 23:59 | disposition home or self-care (01) | LOC: CR 10:48 | PROVIDERS: PCP Physician Assistant; Referring Provider Internal Medicine Cardiovascular Disease; Visit Provider Internal Medicine Cardiovascular Disease | DX: Z95.1 Presence of aortocoronary bypass graft (principal) ==

== ENCOUNTER 2022-02-02 14:18 | Outpatient (RCR) | payer SELFPAY | END 2022-03-03 23:59 | disposition home or self-care (01) | LOC: CR 14:18 | PROVIDERS: PCP Physician Assistant; Referring Provider Internal Medicine Cardiovascular Disease; Visit Provider Internal Medicine Cardiovascular Disease | DX: Z95.1 Presence of aortocoronary bypass graft (principal) ==

== ENCOUNTER 2022-03-06 09:24 | Outpatient (RCR) | payer SELFPAY | END 2022-04-03 23:59 | disposition home or self-care (01) | LOC: CR 09:24 | PROVIDERS: PCP Physician Assistant; Referring Provider Internal Medicine Cardiovascular Disease; Visit Provider Internal Medicine Cardiovascular Disease | DX: Z95.1 Presence of aortocoronary bypass graft (principal) ==

== ENCOUNTER → 2022-03-21 14:32 | Outpatient (BNVA) | payer MEDICARE, OTHER, SELFPAY | PROVIDERS: PCP Physician Assistant; Visit Provider Podiatrist Foot & Ankle Surgery | DX: E11.8 Type 2 diabetes mellitus with unspecified complications (principal); E11.621 Type 2 diabetes mellitus with foot ulcer; Z79.4 Long term (current) use of insulin; L97.511 Non-pressure chronic ulcer of other part of right foot limited to breakdown of skin | CPT/HCPCS: 11721 ==

== ENCOUNTER 2022-04-04 10:12 | Outpatient (RCR) | payer SELFPAY | END 2022-05-03 23:59 | disposition home or self-care (01) | LOC: CR 10:12 | PROVIDERS: PCP Physician Assistant; Referring Provider Internal Medicine Cardiovascular Disease; Visit Provider Internal Medicine Cardiovascular Disease | DX: Z95.1 Presence of aortocoronary bypass graft (principal) ==

== ENCOUNTER 2022-05-04 14:51 | Outpatient (RCR) | payer SELFPAY | END 2022-06-03 23:59 | disposition home or self-care (01) | LOC: CR 14:51 | PROVIDERS: PCP Physician Assistant; Referring Provider Internal Medicine Cardiovascular Disease; Visit Provider Internal Medicine Cardiovascular Disease | DX: Z95.1 Presence of aortocoronary bypass graft (principal) ==

== ENCOUNTER 2022-06-07 12:32 | Outpatient (RCR) | payer SELFPAY | END 2022-07-04 23:59 | disposition home or self-care (01) | LOC: CR 12:32 | PROVIDERS: PCP Physician Assistant; Referring Provider Internal Medicine Cardiovascular Disease; Visit Provider Internal Medicine Cardiovascular Disease | DX: Z95.1 Presence of aortocoronary bypass graft (principal) ==

== ENCOUNTER 2022-06-07 15:02 | Outpatient (CLI) | payer MEDICARE, OTHER, SELFPAY ==
--- NOTE | 2022-06-07 15:45 | CTR_ITS ---
PROCEDURE INFORMATION: Exam: CT Lumbar Spine Without Contrast Exam date and time: 06/07/2022 3:49 PM Age: 71 years old Clinical indication: Prior surgery; Surgery type: C section; Patient HX: Chronic low back pain into bilateral legs; Additional info: Neurogenic claudication, defibulator-no mri TECHNIQUE: Imaging protocol: Computed tomography of the lumbar spine without contrast. Radiation optimization: All CT scans at this facility use at least one of these dose optimization techniques: automated exposure control; mA and/or kV adjustment per patient size (includes targeted exams where dose is matched to clinical indication); or iterative reconstruction. COMPARISON: CT lumbar spine wo con* [id number] 08/16/2015 8:11 AM RADIATION DOSE METRICS: Total DLP (mGy-cm): 931.11 FINDINGS: Bones/joints: No acute fracture. Grade 1 anterolisthesis of L4 on L5. Minimal retrolisthesis of L2 on L3. Relatively advanced multilevel degenerative disc disease throughout the lumbar spine as well as moderate multilevel facet arthropathy particularly within the mid and lower lumbar spine. Multifocal areas of at least moderate central canal stenosis seen posterior to L2-L3, L3-L4, and L4-L5. Soft tissues: Unremarkable. CT/CT lumbar spine wo con* [id number] IMPRESSION: 1. Relatively advanced multilevel degenerative disc disease and spondylosis of the lumbar spine as described in the body of the report. 2. Grade 1 anterolisthesis of L4 on L5 and minimal retrolisthesis of L2 on L3. At least moderate areas of central canal stenosis posterior to L2-L3, L3-L4, and L4-L5.
== END 2022-06-07 15:03 | disposition home or self-care (01) ==
LOC: RAD 15:07
PROVIDERS: PCP Physician Assistant; Visit Provider Physician Assistant
DX: M48.062 Spinal stenosis, lumbar region with neurogenic claudication (principal); M51.36 Other intervertebral disc degeneration, lumbar region
CPT/HCPCS: 72131

== ENCOUNTER → 2022-06-22 13:46 | Outpatient (BNVA) | payer MEDICARE, OTHER, SELFPAY | PROVIDERS: PCP Physician Assistant; Visit Provider Podiatrist Foot & Ankle Surgery | DX: E11.621 Type 2 diabetes mellitus with foot ulcer (principal); Z79.4 Long term (current) use of insulin; L97.511 Non-pressure chronic ulcer of other part of right foot limited to breakdown of skin; E11.8 Type 2 diabetes mellitus with unspecified complications | CPT/HCPCS: 11721 ==

== ENCOUNTER 2022-07-05 13:49 | Outpatient (RCR) | payer SELFPAY | END 2022-08-01 23:59 | disposition home or self-care (01) | LOC: CR 13:49 | PROVIDERS: PCP Physician Assistant; Referring Provider Internal Medicine Cardiovascular Disease; Visit Provider Internal Medicine Cardiovascular Disease | DX: Z95.1 Presence of aortocoronary bypass graft (principal) ==

== ENCOUNTER → 2022-07-12 14:04 | Outpatient (BNVA) | payer MEDICARE, OTHER, SELFPAY | PROVIDERS: PCP Physician Assistant; Visit Provider Specialist | DX: G20 Parkinson's disease (principal); F02.80 Dementia in other diseases classified elsewhere, unspecified severity, without behavioral disturbance, psychotic disturbance, mood disturbance, and anxiety; M54.50 Low back pain, unspecified; I48.91 Unspecified atrial fibrillation; Z79.01 Long term (current) use of anticoagulants | CPT/HCPCS: 96116; 99214 ==

== ENCOUNTER 2022-08-02 14:33 | Outpatient (RCR) | payer SELFPAY | END 2022-09-01 23:59 | disposition home or self-care (01) | LOC: CR 14:33 | PROVIDERS: PCP Physician Assistant; Referring Provider Internal Medicine Cardiovascular Disease; Visit Provider Internal Medicine Cardiovascular Disease | DX: Z95.1 Presence of aortocoronary bypass graft (principal) ==

== ENCOUNTER 2022-09-04 12:04 | Outpatient (RCR) | payer SELFPAY | END 2022-10-01 23:59 | disposition home or self-care (01) | LOC: CR 12:04 | PROVIDERS: PCP Physician Assistant; Referring Provider Internal Medicine Cardiovascular Disease; Visit Provider Internal Medicine Cardiovascular Disease | DX: Z95.1 Presence of aortocoronary bypass graft (principal) ==

== ENCOUNTER → 2022-09-07 14:31 | Outpatient (BNVA) | payer MEDICARE, OTHER, SELFPAY | PROVIDERS: PCP Physician Assistant; Visit Provider Podiatrist Foot & Ankle Surgery | DX: E11.621 Type 2 diabetes mellitus with foot ulcer (principal); Z79.4 Long term (current) use of insulin; E11.8 Type 2 diabetes mellitus with unspecified complications; L97.511 Non-pressure chronic ulcer of other part of right foot limited to breakdown of skin | CPT/HCPCS: 11721 ==

== ENCOUNTER 2022-10-02 14:57 | Outpatient (RCR) | payer SELFPAY | END 2022-11-01 23:59 | disposition home or self-care (01) | LOC: CR 14:57 | PROVIDERS: PCP Physician Assistant; Referring Provider Internal Medicine Cardiovascular Disease; Visit Provider Internal Medicine Cardiovascular Disease | DX: Z95.1 Presence of aortocoronary bypass graft (principal) ==

== ENCOUNTER 2022-11-03 12:46 | Outpatient (RCR) | payer SELFPAY | END 2022-12-01 23:59 | disposition home or self-care (01) | LOC: CR 12:46 | PROVIDERS: PCP Physician Assistant; Referring Provider Internal Medicine Cardiovascular Disease; Visit Provider Internal Medicine Cardiovascular Disease | DX: Z95.1 Presence of aortocoronary bypass graft (principal) ==

== ENCOUNTER 2022-12-07 08:11 | Outpatient (RCR) | payer MEDICARE, OTHER, SELFPAY | END 2023-01-01 23:59 | disposition home or self-care (01) | LOC: CR 08:11 | PROVIDERS: PCP Physician Assistant; Referring Provider Internal Medicine Cardiovascular Disease; Visit Provider Internal Medicine Cardiovascular Disease | DX: Z95.1 Presence of aortocoronary bypass graft; L60.3 Nail dystrophy; E11.42 Type 2 diabetes mellitus with diabetic polyneuropathy; I73.9 Peripheral vascular disease, unspecified | CPT/HCPCS: 11721 ==

== ENCOUNTER 2023-01-02 13:35 | Outpatient (RCR) | payer SELFPAY | END 2023-02-01 23:59 | disposition home or self-care (01) | LOC: CR 13:35 | PROVIDERS: PCP Physician Assistant; Referring Provider Internal Medicine Cardiovascular Disease; Visit Provider Internal Medicine Cardiovascular Disease | DX: Z95.1 Presence of aortocoronary bypass graft ==

== ENCOUNTER → 2023-01-16 13:50 | Outpatient (BNVA) | payer MEDICARE, OTHER, SELFPAY | PROVIDERS: PCP Physician Assistant; Visit Provider Specialist | DX: G20 Parkinson's disease (principal); I50.1 Left ventricular failure, unspecified; L97.511 Non-pressure chronic ulcer of other part of right foot limited to breakdown of skin; E11.42 Type 2 diabetes mellitus with diabetic polyneuropathy; Z95.810 Presence of automatic (implantable) cardiac defibrillator; I25.10 Atherosclerotic heart disease of native coronary artery without angina pectoris; E11.621 Type 2 diabetes mellitus with foot ulcer; Z79.4 Long term (current) use of insulin | CPT/HCPCS: 99214 ==

== ENCOUNTER 2023-02-02 10:14 | Outpatient (RCR) | payer SELFPAY | END 2023-03-03 23:59 | disposition home or self-care (01) | LOC: CR 10:14 | PROVIDERS: PCP Physician Assistant; Referring Provider Internal Medicine Cardiovascular Disease; Visit Provider Internal Medicine Cardiovascular Disease | DX: Z95.1 Presence of aortocoronary bypass graft ==

== ENCOUNTER 2023-03-06 09:56 | Outpatient (RCR) | payer SELFPAY | END 2023-04-03 23:59 | disposition home or self-care (01) | LOC: CR 09:56 | PROVIDERS: PCP Physician Assistant; Referring Provider Internal Medicine Cardiovascular Disease; Visit Provider Internal Medicine Cardiovascular Disease | DX: Z95.5 Presence of coronary angioplasty implant and graft (principal); I73.9 Peripheral vascular disease, unspecified; L60.3 Nail dystrophy; E11.42 Type 2 diabetes mellitus with diabetic polyneuropathy; Z79.4 Long term (current) use of insulin ==

== ENCOUNTER 2023-04-06 09:45 | Outpatient (RCR) | payer SELFPAY | END 2023-05-03 23:59 | disposition home or self-care (01) | LOC: CR 09:45 | PROVIDERS: PCP Physician Assistant; Referring Provider Internal Medicine Cardiovascular Disease; Visit Provider Internal Medicine Cardiovascular Disease | DX: I73.9 Peripheral vascular disease, unspecified (principal); Z95.1 Presence of aortocoronary bypass graft; L60.3 Nail dystrophy; E11.42 Type 2 diabetes mellitus with diabetic polyneuropathy; Z79.4 Long term (current) use of insulin | CPT/HCPCS: 93798 ==

== ENCOUNTER 2023-05-10 10:09 | Outpatient (RCR) | payer SELFPAY | END 2023-06-03 23:59 | disposition home or self-care (01) | LOC: CR 10:09 | PROVIDERS: PCP Physician Assistant; Referring Provider Internal Medicine Cardiovascular Disease; Visit Provider Internal Medicine Cardiovascular Disease | DX: I73.9 Peripheral vascular disease, unspecified (principal) ==

== ENCOUNTER 2023-06-05 10:15 | Outpatient (RCR) | payer SELFPAY | END 2023-07-04 23:59 | disposition home or self-care (01) | LOC: CR 10:15 | PROVIDERS: PCP Physician Assistant; Referring Provider Internal Medicine Cardiovascular Disease; Visit Provider Internal Medicine Cardiovascular Disease | DX: Z95.1 Presence of aortocoronary bypass graft ==

== ENCOUNTER → 2023-06-13 11:08 | Outpatient (BNVA) | payer MEDICARE, OTHER, SELFPAY | PROVIDERS: PCP Physician Assistant; Visit Provider Podiatrist Foot & Ankle Surgery | DX: E11.42 Type 2 diabetes mellitus with diabetic polyneuropathy (principal); L60.3 Nail dystrophy; I73.9 Peripheral vascular disease, unspecified; D21.9 Benign neoplasm of connective and other soft tissue, unspecified; M21.611 Bunion of right foot; M21.612 Bunion of left foot; M21.41 Flat foot [pes planus] (acquired), right foot; M21.42 Flat foot [pes planus] (acquired), left foot; Z79.4 Long term (current) use of insulin | CPT/HCPCS: 11721; 99213 ==

== ENCOUNTER → 2023-07-10 14:51 | Outpatient (BNVA) | payer MEDICARE, OTHER, SELFPAY | PROVIDERS: PCP Physician Assistant; Visit Provider Specialist | DX: G20.A2 Parkinson's disease without dyskinesia, with fluctuations (principal) | CPT/HCPCS: 99214 ==